=== PATIENT | male | born 1935 | race African-American/Black ===

== ENCOUNTER 2016-11-05 16:34 | Inpatient (IN) | payer BC, MEDICARE ==
[~2016-11-05] VITALS: Ht 182.9 cm; Wt 86.2 kg
[~2016-11-05 16:34] MED LIST: ALBUTEROL2.5 MG/3 M UPD; BUMETANIDE0.5 MG PO; COLACE100 MG PO; DULCOLAX10 MG/SUPP RC; FLORAJEN3 CAPS460 MG PO; HUMULIN R100 U/ML SC; IPRAT-ALBUT 0.5-3 ML INH; LANTUS SOL100 UNIT/1 SC; LISINOPRIL10 MG PO; LOVENOX30 MG/0.3 SC; LYRICA25 MG PO; MAXIPIME 2 GM/D52 G1 IV; MIRALAX17 GM PO; MUCINEX DM ER1 EAC1 PO; NEURONTIN800 MG PO; ONDANSETRON4 MG/2 M3 IV; PROTONIX40 MG PO; PULMICORT0.5 MG/21 UPD; TESSALON PERLE100 MG PO
[2016-11-05 18:13] VITALS: BP 166/92; BMI 25.8
--- NOTE | 2016-11-05 19:15 | NUR ---
RESTING QUIETLY IN BED, EYES CLOSED. O2 @ 1L PER N/C.
[2016-11-05 21:20] VITALS: BP 139/90
--- NOTE | 2016-11-05 21:20 | NUR ---
ASSESSMENT AND HS MEDS COMPLETE. STARTED SCHEDULED CEFEPIME 2GM IN 50 ML TO RUN OVER 1 HOUR PER PUMP VIA RIGHT HAND S/L. TOLD PATIENT I WILL RETURN TO TAKE AND TREAT HIS BLOOD SUGAR WHEN THE GLUCOMETER IS AVAILABLE.
--- NOTE | 2016-11-05 21:50 | NUR ---
FSBS 280. GAVE PATIENT SCHEDULED LANTUS INSULIN 50 UNITS, AND SLIDING SCALE REGULAR INSULIN 6 UNITS BY SEPARATE SC INJECTIONS IN LEFT UPPER ABDOMEN. ALSO GAVE PATIENT SCHEDULED HS SNACK.
--- NOTE | 2016-11-06 | NUR ---
RESTING IN BED, EYES CLOSED. APPEARS COMFORTABLE.
--- NOTE | 2016-11-06 02:15 | NUR ---
RESTING IN BED, EYES CLOSED. CONTINUES ON O2 @ 1L PER N/C. EMPTIED 225ML FROM BEDSIDE URINAL.
--- NOTE | 2016-11-06 04:15 | NUR ---
IN BED, EYES CLOSED. REMAINS HOB UP 45 DEGREES. APPEARS COMFORTABLE.
--- NOTE | 2016-11-06 06:30 | NUR ---
FSBS 107. DENIES NEEDS.
[2016-11-06 06:58] LABS: BASOPHILS 0.4 % (0.0-2.0); EOSINOPHILS 6.6 % (0-7); HEMATOCRIT 42.1 % (42.0-54.0); HEMOGLOBIN 13.3 g/dL (13.5-17.5); IMMATURE GRANULOCYTES 0.1 % (0-5); LYMPHOCYTES 18.8 % (15-50); MCH 27.3 pg (26.0-34.0); MCHC 31.6 g/dL (31.0-37.0); MCV 86.4 fL (80.0-100.0); MEAN PLATELET VOLUME 10.8 fL (7.4-10.4); MONOCYTES 10.6 % (2-11); NEUTROPHILS 63.5 % (40-80); PLATELET COUNT 241 10x3/uL (130-400); RBC 4.87 10x6/uL (4.20-6.10); WBC 7.8 10x3/uL (4.8-10.8)
[2016-11-06 07:35] LABS: ANION GAP 11.9 mmol/L (8-16); CALCIUM 8.9 mg/dL (8.5-10.1); CARBON DIOXIDE 26.8 mmol/L (21.0-32.0); CREATININE - SERUM 1.2 mg/dL (0.6-1.3); POTASSIUM - SERUM 3.7 mmol/L (3.5-5.1)
--- NOTE | 2016-11-06 08:15 | NUR ---
PT RESTING IN BED WITH EYES OPEN CALL LIGHT IN REACH NO PROBLEMS WILL MONITER
[2016-11-06 12:17] VITALS: BP 125/71
--- NOTE | 2016-11-06 13:14 | RHP ---
PATIENT: JAYJAY WEI MEDICAL RECORD: [id number] ACCOUNT: [id number] LOCATION:[facility] [place] Olivia1111 : 31 ADMISSION DATE: 11/05/16 REHABILITATION HISTORY AND PHYSICAL EXAMINATION POST ADMISSION PHYSICIAN EXAMINATION DATE OF ADMISSION TO THE REHAB: 11/05/2016 ADMITTING DIAGNOSIS: Multilobar pneumonia involving the left upper lobe, left lower lobe and right lower, lobe emphysema, and pleural effusion. HISTORY OF PRESENT ILLNESS: The patient is an 81-year-old gentleman who was admitted on November 01 with multilobar pneumonia. He has a history of hypertension, chronic kidney disease, and diabetes. He is admitted for increasing shortness of breath and weakness. He has been sick for 3-4 days, but becoming progressively worse. He had fallen twice. He has had dyspnea and wheezing with any type of activity. He is really not having leg edema and has not really had any problems with his breathing affected by weather changes in the past. He has had some subjective fever and chills over the last couple of days. He is an ex-smoker, quit 10 years ago. Prior to that, he smoked 2 packs a day since the age of 14. He was markedly independent with ADLs. He used a cane on occasion. Currently, he is moderate to max assist with ADLs and mobility, unable to ambulate without portable O2 and still becomes fatigued and shortness of breath. COMORBIDITIES: Include acute dyspnea, fever, COPD, chronic kidney disease, diabetes, acute weakness, debility, recent falls, numbness, arrhythmias, respiratory distress, PE, DVT, fall, skin breakdown and sepsis. PAST MEDICAL HISTORY: Significant for a history of chronic kidney disease, probable COPD, diabetes mellitus, recent falls, PE, and DVT. PAST SURGICAL HISTORY: Includes a disc repair. ALLERGIES: No known drug allergies. CURRENT MEDICATIONS: Include Protonix 40 mg daily, lisinopril 10 mg daily, Lactinex 1 tab daily. He is on Lovenox 30 mg subQ daily, Bumex 0.5 mg daily, polyethylene glycol 17 grams in 8 ounces of water daily. He is on ____ 2 grams IV q.12 hours. He is on Zofran p.r.n. nausea and vomiting, DuoNeb updrafts q. 4 hours. He is on a low resistant sliding scale with insulin. He is on Lantus 50 units q. h.s. He is on Mucinex DM twice daily, Neurontin ____ mg t.i.d., Colace 100 mg b.i.d., budesonide 0.5 mg b.i.d., Dulcolax suppositories p.r.n., Tessalon Perles 100 mg t.i.d. p.r.n. HABITS: No current alcohol or tobacco use. FAMILY HISTORY: Noncontributory. SOCIAL HISTORY: The patient is . He would like to return home with his . REVIEW OF SYSTEMS: GENERAL: He does complain of weakness and fatigue. HEENT: He does complain of cold, cough, and congestion at times. HISTORY AND PHYSICAL [id number] JAYJAY WEI CARDIOVASCULAR: He denies any chest pain. LUNGS: He does complain of shortness of breath. PHYSICAL EXAMINATION: VITAL SIGNS: Stable and afebrile. GENERAL: A well-developed gentleman in no acute distress, alert upon exam. HEENT: Normocephalic and atraumatic. Mucosa moist. NECK: Supple. No lymphadenopathy. LUNGS: Clear at this time. HEART: Regular rate and rhythm. ABDOMEN: Benign. EXTREMITIES: No clubbing, cyanosis or edema. NEUROLOGIC: Intact. LABORATORY DATA: His white count is 136, potassium 3.7. BUN and creatinine 15 and 1.2. White count of 7.8, H&H of 13 and 42, and platelet count is 241. ASSESSMENT: This is an 81-year-old gentleman admitted to the rehab with a working diagnosis of multilobar pneumonia, which has caused him to have a significant myopathic change. The patient has potential to make improvement. We instituted the following multidisciplinary therapies including to, but not limited to physical, occupational, speech, respiratory therapy. The patient has potential to make improvement and will not be able to make these improvements at a low level of care such as a residential facility. PLAN: 1. Admit to [facility] rehab for intensive inpatient therapy to include the following disciplines: A. Physical therapy to improve gait, all transfer skills and bed mobility to a modified independent level. B. Occupational therapy to improve activities of daily living to a modified independent level. C. Case management to assist with discharge planning and placement options. D. Nutrition to assist with nutritional needs. E. Rehabilitation nursing to assist in monitoring the patient's underlying medical conditions and to assist with any type of bowel or bladder management. 2. The patient's current medication and medical care will be continued. 3. The patient will be placed on standard fall precautions. 4. The patient's estimated length of stay is approximately 7-10 days. 5. Discuss this patient during care team staff meeting this week. TRANSINT:[id number] Voice Confirmation ID: [id number] DOCUMENT ID: [id number] ROBERTO CARLOS MARRUFO MD at 1314 CC: [id number] DICTATION DATE: 11/06/16926 PADDER: 11/06/16 0957 ADM IN [facility] [address] [id number]
--- NOTE | 2016-11-06 14:40 | NUR ---
PT IN ROOM WITH PEECH THERAPY NO PROBLEMS CALL LIGHT IN REACH WILL MONITER
[2016-11-06 14:49] VITALS: Ht 182.9 cm; Wt 86.2 kg
--- NOTE | 2016-11-06 17:38 | NUR ---
PT RESTING IN BED WITH EYES OPEN CALL LIGHT IN REACH WILL MONITER
[2016-11-06 20:00] VITALS: BP 133/76
--- NOTE | 2016-11-06 20:00 | NUR ---
PT IS RESTING IN BED WITH EYES CLOSED. AWAKENS EASILY TO VERBAL STIMULI. DENIES PAIN OR DISCOMFORT AT THIS TIME. NO NEEDS VOICED. VSS. 02 IS ON @ 2LPM PER NC. SR'S ARE UP X 2 IN BED. CALL LIGHT AND BEDSIDE TABLE ARE WITHIN EASY REACH.
--- NOTE | 2016-11-06 21:45 | NUR ---
PT IS RESTING IN BED WATCHING TV. PT STATED, IM STARVING. I DIDNT EAT ANYTHING FOR SUPPER TONIGHT. PT GIVEN A SANDWICH TRAY. HE STATED, THAT WOULD DO JUST FINE. NO FURTHER NEEDS VOICED.
--- NOTE | 2016-11-06 23:39 | NUR ---
RESTING QUIETLY IN BED WITH EYES CLOSED. RESPS ARE EVEN AND UNLABORED. NO ACUTE DISTRESS NOTED.
--- NOTE | 2016-11-07 00:15 | NUR ---
PT. IN BED WITH HOB UP FOR COMFORT WITH EYES CLOSED AND RESP. EVEN. PT. AWAKENS EASILY AND DENIES ANY PROBLEMS OR PAIN. CALL LIGHT WITHIN REACH.
--- NOTE | 2016-11-07 02:09 | NUR ---
RESTING IN BED WITH EYES CLOSED.
--- NOTE | 2016-11-07 06:16 | NUR ---
PT RESTING IN BED WITH EYES CLOSED. AWOKE EASILY TO VERBAL STIMULI. DENIES NEEDS. USING URINAL PRN.
[2016-11-07 07:00] VITALS: BP 118/63
--- NOTE | 2016-11-07 07:00 | NUR ---
Pt. was received in bed with eyes closed at the beginning of this shift. His IV was connected still to the antibiotic hanging and soon finished out. IV in rt. hand patent. He is oriented to person and place. 02 per nc going at 2L/min. He had had an incontinent episode of urine badly and was soon cleaned up. His breakfast tray was then put in front of him and he began eatting. He needs assist with all adl's. Vital signs: Temp. 97.6, pulse 95, resp. 16, b/p 93/44, 02sat. 98%. on 2L/min. per nc. Will be monitoring him closely this shift and assisting prn.
--- NOTE | 2016-11-07 19:30 | NUR ---
PT RESTING IN BED WATCHING TV. ALERT AND ORIENTED X 3. DENIES ACUTE DISCOMFORT. REQUESTED ASSIST WITH THE URINAL. VOIDED 550 CC CLEAR KB URINE WITHOUT DIFFICULTY. VSS. SALINE LOCK NOTED TO RIGHT HAND. NO REDNESS OR EDEMA NOTED AT THE INSERTION SITE. O2 IS ON @ 2LPM PER NC. SR'S ARE UP X 3 IN BED. CALL LIGHT AND BEDSIDE TABLE ARE WITHIN EASY REACH.
[2016-11-07 19:53] VITALS: BP 135/81
--- NOTE | 2016-11-07 21:13 | NUR ---
PT IS RESTING IN BED WATCHING TV. NO NEEDS VOICED.
--- NOTE | 2016-11-08 00:05 | NUR ---
RESTING IN BED WITH EYES CLOSED.
--- NOTE | 2016-11-08 03:26 | NUR ---
RESTING QUIETLY IN BED WITH EYES CLOSED. NO DISTRESS NOTED.
--- NOTE | 2016-11-08 06:00 | NUR ---
PT RESTING WITH EYES CLOSED, RESPIRATIONS REGULAR AND LABORED, NO S/S OF ACUTE DISTRESS.
[2016-11-08 07:00] VITALS: BP 107/54
--- NOTE | 2016-11-08 07:00 | NUR ---
Pt. was received in bed awake at the beginning of this shift today. He was alert and oriented x 3. No complaints voiced or signs of discomfort or distress. Vital signs: Temp. 98.5, pulse 72, resp. 18, b/p 107/54, 02Sat. 99%. Pt. uses his urinal in bed, he holds it between his legs. Saline lock in rt. hand. 02 per nc going at 2L/min. Will be monitoring him and assisting prn with adl's. Call light in reach.
--- NOTE | 2016-11-08 15:19 | NUR ---
Pt's Lisinopril was held this am due to his bp being 107/54. He had phoned his this afternoon and told her that he had trouble at lunch holding his food but didn't want to say anything to the nurse or ask for assist. She told him she would be up at supper time. Will be available to him at suppertime to assist prn.
--- NOTE | 2016-11-08 19:30 | NUR ---
PT IS RESTING IN BED WATCHING TV. ALERT AND ORIENTED X 3. DENIES PAIN OR DISCOMFORT. ASSISTED TO USE URINAL BY SENIOR MARKETING ENGINEER. VSS. SALINE LOCK NOTED TO RIGHT HAND. NO REDNESS OR EDEMA NOTED AT THE INSERTION SITE. SR'S ARE UP X 3 IN BED. CALL LIGHT AND BEDSIDE TABLE ARE WITHIN EASY REACH.
[2016-11-08 20:00] VITALS: BP 129/81
--- NOTE | 2016-11-08 21:10 | NUR ---
PT RESTING IN BED WATCHING TV. NO NEEDS VOICED.
--- NOTE | 2016-11-09 00:05 | NUR ---
PT NOTED TO BE INC. OF A LARGE AMOUNT OF URINE. BED BATH , AND FULL LINEN CHANGE DONE.
--- NOTE | 2016-11-09 04:12 | NUR ---
RESTING IN BED WITH EYES CLOSED.
--- NOTE | 2016-11-09 04:51 | NUR ---
pt resting with eyes closed, respirations regular and unlabored, no s/s of acute distress.
[2016-11-09 08:44] VITALS: BP 142/68
--- NOTE | 2016-11-09 13:54 | NUR ---
PT RESTING IN BED WITH EYES OPEN CALL LIGHT IN REACH NO PROBLEMS WILL MONITER
[2016-11-09 19:40] VITALS: BP 109/61
--- NOTE | 2016-11-09 20:00 | NUR ---
PT IS RESTING IN BED WITH EYES OPEN. SEVERAL FAMILY MEMBERS ARE AT BEDSIDE. PT IS ALERT TO SELF AND PLACE. CONFUSED TO TIME AND SITUATION. REORIENTS EASILY. PT STATES: "I JUST FEEL EXTRA WEAK TODAY, I DONT KNOW WHY." SALINE LOCK NOTED TO RIGHT HAND. SR'S ARE UP X 3 IN BED. CALL LIGHT AND BEDSIDE TABLE ARE WITHIN EASY REACH.
--- NOTE | 2016-11-09 22:01 | NUR ---
PT IS RESTING QUIETLY IN BED WITH EYES CLOSED. RESPS ARE EVEN AND UNLABORED. NO ACUTE DISTRESS NOTED.
--- NOTE | 2016-11-10 00:11 | NUR ---
PT RESTING IN BED WITH EYES CLOSED.
--- NOTE | 2016-11-10 02:38 | NUR ---
PT RESTING, EYES CLOSED. BED LOW. CL IN REACH.
--- NOTE | 2016-11-10 06:02 | NUR ---
PT RESTING IN BED WITH EYES CLOSED. AWOKE TO VERBAL STIMULI. TOLERATED AM ADLS WITHOUT DIFFICULTY. NO NEEDS VOICED.
--- NOTE | 2016-11-10 07:36 | NUR ---
RESTING QUIETLY IN BED. CALL LIGHT IN REACH
--- NOTE | 2016-11-10 08:15 | NUR ---
PT EATING BREAKFAST TOLERATING WELL CALL LIGHT IN REACH NO PROBLEMS WILL MONITER
[2016-11-10 08:34] VITALS: BP 110/56
--- NOTE | 2016-11-10 14:40 | NUR ---
PT WENT FOR CHEST X-RAY BACK IN ROOM SITTING IN WHEELCHAIR TOLERATING WELL CALL LIGHT IN REACH WILL MONITER
[2016-11-10 15:49] LABS: BASOPHILS 0.2 % (0.0-2.0); EOSINOPHILS 1.4 % (0-7); HEMATOCRIT 46.4 % (42.0-54.0); HEMOGLOBIN 14.8 g/dL (13.5-17.5); IMMATURE GRANULOCYTES 0.4 % (0-5); LYMPHOCYTES 18.2 % (15-50); MCH 28.2 pg (26.0-34.0); MCHC 31.9 g/dL (31.0-37.0); MCV 88.5 fL (80.0-100.0); MEAN PLATELET VOLUME 10.4 fL (7.4-10.4); MONOCYTES 9.1 % (2-11); NEUTROPHILS 70.7 % (40-80); PLATELET COUNT 277 10x3/uL (130-400); RBC 5.24 10x6/uL (4.20-6.10); RDW 15.4 % (11.5-14.5); WBC 11.2 10x3/uL (4.8-10.8)
[2016-11-10 16:26] LABS: ALBUMIN 2.9 g/dL (3.4-5.0); ALKALINE PHOSPHATASE 123 U/L (46-116); ALT (SGPT) 81 U/L (10-68); BILIRUBIN - TOTAL 0.83 mg/dL (0.2-1.3); CALCIUM 10.1 mg/dL (8.5-10.1); CARBON DIOXIDE 31.9 mmol/L (21.0-32.0); CHLORIDE - SERUM 95 mmol/L (98-107); CREATININE - SERUM 1.7 mg/dL (0.6-1.3); POTASSIUM - SERUM 4.8 mmol/L (3.5-5.1); PROTEIN - SERUM 8.8 g/dL (6.4-8.2); SODIUM 134 mmol/L (136-145); THYROID STIMULATING HORMONE 2.05 uIU/mL (0.36-3.74); UREA NITROGEN 33 mg/dL (7-18); eGFR NON AFRICAN AMERICAN 41 mL/min (90-120)
[2016-11-10 16:27] LABS: CALC OSMOLALITY 280 mosm/kg (275-300); CKMB 1.2 U/L (0.0-3.6); CREATINE KINASE 1553 UL (21-232); GLUCOSE 210 mg/dL (74-106)
--- NOTE | 2016-11-10 17:12 | NUR ---
PT RESTING IN BED WITH EYES OPEN CALL LIGHT IN REACH VISITORS AT BEDSIDE WILL MONITER
--- NOTE | 2016-11-10 19:10 | NUR ---
PATIENT IN BED, AWAKE. HOB UP 30 DEGREES. O2 @ 2L PER N/C.
[2016-11-10 21:19] VITALS: BP 109/58
--- NOTE | 2016-11-10 21:25 | NUR ---
ASSESSMENT AND HS MEDS COMPLETE. TOOK MEDS WHOLE WITH WATER. TOLD HIM STEEL TESTER WILL ASSIST HIM TO BATHE AROUND 2200 HRS.
--- NOTE | 2016-11-10 22:35 | NUR ---
PATIENT WAS GIVEN A BEDBATH BY GENERAL EXPEDITOR. NOW IS REPOSITIONED HIGHER UP IN BED AFTER BATH AND PLACEMENT OF FRESH SCRUB SHIRT REQUIRING TOTAL ASSIST (X2).
--- NOTE | 2016-11-11 00:05 | NUR ---
IN BED, EYES CLOSED. RESTING IN PARTIAL RIGHT SIDELYING POSITION. NO DISTRESS NOTED.
--- NOTE | 2016-11-11 02:00 | NUR ---
CONTINUES IN BED, RESTING QUIETLY.
--- NOTE | 2016-11-11 04:30 | NUR ---
RESTING QUIETLY IN BED, EYES CLOSED. RESPIRATIONS UNLABORED.
[2016-11-11 04:58] LABS: BASOPHILS 0.2 % (0.0-2.0); EOSINOPHILS 0.7 % (0-7); HEMATOCRIT 43.5 % (42.0-54.0); HEMOGLOBIN 13.6 g/dL (13.5-17.5); IMMATURE GRANULOCYTES 0.3 % (0-5); LYMPHOCYTES 11.4 % (15-50); MCH 27.3 pg (26.0-34.0); MCHC 31.3 g/dL (31.0-37.0); MCV 87.2 fL (80.0-100.0); MEAN PLATELET VOLUME 10.4 fL (7.4-10.4); MONOCYTES 10.2 % (2-11); NEUTROPHILS 77.2 % (40-80); PLATELET COUNT 276 10x3/uL (130-400); RBC 4.99 10x6/uL (4.20-6.10); RDW 15.1 % (11.5-14.5); WBC 9.9 10x3/uL (4.8-10.8)
[2016-11-11 05:10] LABS: ANION GAP 11.5 mmol/L (8-16); CALCIUM 8.8 mg/dL (8.5-10.1); CARBON DIOXIDE 28.6 mmol/L (21.0-32.0); CREATININE - SERUM 1.6 mg/dL (0.6-1.3); POTASSIUM - SERUM 5.1 mmol/L (3.5-5.1)
--- NOTE | 2016-11-11 07:51 | NUR ---
SITTING UP IN BED WITH HOB ELEVATED ABOUT 70 DEGREES.
--- NOTE | 2016-11-11 08:15 | NUR ---
PT RESTING IN BED PT EYES CLOSED UNLABORED RESPIRATIONS PT SLOW TO RESPOND STATES HE JUST DOESNT FEEL GOOD AND THAT HE IS NOT HUNGRY CALL LIGHT IN REACH WILL MONITER
--- NOTE | 2016-11-11 09:30 | NUR ---
DR MARRUFO SEEN PT WILL PLAN ON DC TO ACUTE CARE
[2016-11-11 09:51] VITALS: BP 130/67
--- NOTE | 2016-11-11 13:30 | NUR ---
ORDERS WROTE FOR DISCHARGE PT TO ACUTE CARE WILL DC ORDERED
--- NOTE | 2016-11-11 14:46 | NUR ---
DUE TO CHANGE IN MEDICAL CONDITION PATIENT DISCHARGED FROM REHAB AND ADMITTED TO ACUTE FLOOR
--- NOTE | 2016-11-11 17:05 | NUR ---
PT DISCHARGED TO ACUTE CARE PER DR ORDERS REPORT CALLED TO [facility] KAPLAN MED 2 PT TRANSFERED IN BED TOLERATED WELL
== END 2016-11-11 17:07 | disposition short-term general hospital (02) | DRG 190 ==
LOC: D.REHAB 16:34
PROVIDERS: ADMIT Emergency Medicine
DX: J44.0 Chronic obstructive pulmonary disease with (acute) lower respiratory infection (principal); J18.9 Pneumonia, unspecified organism; A41.9 Sepsis, unspecified organism; I12.9 Hypertensive chronic kidney disease with stage 1 through stage 4 chronic kidney disease, or unspecified chronic kidney disease; N18.9 Chronic kidney disease, unspecified; E11.65 Type 2 diabetes mellitus with hyperglycemia; E87.5 Hyperkalemia; R94.5 Abnormal results of liver function studies; R53.81 Other malaise

== ENCOUNTER 2016-11-11 17:09 | Inpatient (IN) | payer BC, MEDICARE ==
[~2016-11-11] VITALS: Ht 182.9 cm; Wt 85.7 kg
[2016-11-11 17:13] VITALS: BP 134/65
[2016-11-11 17:39] VITALS: BP 134/65; BMI 25.7
--- NOTE | 2016-11-11 17:51 | NUR ---
ADMITTED FROM INPATIENT REHAB. CONFUSED AT SITUATION. DOES KNOW HE HASBEEN MOVED TO INPATIENT DUE TO PNEUMONIA. HISTORY TAKEN FROM REHAB. IV STARTED ON 2ND ATTEMPT IN L AC WITH 20 G 1 IN. SALINE LOCKED. WHEEZING ON EXPIRATION. COOL AND DRY. WILL CONTINUE TO MONITOR.
--- NOTE | 2016-11-11 19:48 | NUR ---
PT LYING IN BED, AWAKE, ALERT, ORIENTED, DENIES ANY NEEDS. CONTINUE TO MONITOR CLOSELY. BED LOW, CALL LIGHT IN REACH, SIDE RAILS X 2, HOB 10 DEGREES.
[2016-11-11 20:26] VITALS: BP 151/85
[2016-11-12 00:38] VITALS: BP 146/64
--- NOTE | 2016-11-12 04:30 | NUR ---
PT CALLED C/O MID STERNAL CHEST PAIN, ALSO RUNNING LOW GRADE TEMP @ 99.9 ORALLY. PRN TYLENOL GIVEN, AND PT PLACED ON TELEMETRY. PT DENIES ANY OTHER NEEDS. CONTINUE TO MONITOR CLOSELY.
[2016-11-12 04:40] VITALS: BP 100/57
[2016-11-12 05:47] LABS: BASOPHILS 0.2 % (0.0-2.0); HEMATOCRIT 40.4 % (42.0-54.0); HEMOGLOBIN 12.6 g/dL (13.5-17.5); IMMATURE GRANULOCYTES 0.1 % (0-5); LYMPHOCYTES 14.4 % (15-50); MCH 27.5 pg (26.0-34.0); MCHC 31.2 g/dL (31.0-37.0); MCV 88.2 fL (80.0-100.0); MEAN PLATELET VOLUME 10.4 fL (7.4-10.4); MONOCYTES 9.9 % (2-11); NEUTROPHILS 73.4 % (40-80); PLATELET COUNT 311 10x3/uL (130-400); RBC 4.58 10x6/uL (4.20-6.10); RDW 15.1 % (11.5-14.5); WBC 8.6 10x3/uL (4.8-10.8)
[2016-11-12 06:43] LABS: CALC OSMOLALITY 284 mosm/kg (275-300); CALCIUM 9.1 mg/dL (8.5-10.1); CARBON DIOXIDE 29.9 mmol/L (21.0-32.0); CHLORIDE - SERUM 98 mmol/L (98-107); CREATINE KINASE 780 UL (21-232); CREATININE - SERUM 1.6 mg/dL (0.6-1.3); GLUCOSE 272 mg/dL (74-106); MAGNESIUM - SERUM 2.4 mg/dL (1.8-2.4); PHOSPHOROUS 2.7 mg/dL (2.5-4.9); POTASSIUM - SERUM 4.7 mmol/L (3.5-5.1); SODIUM 133 mmol/L (136-145); UREA NITROGEN 38 mg/dL (7-18); eGFR NON AFRICAN AMERICAN 44 mL/min (90-120)
[2016-11-12 07:07] LABS: CKMB 0.7 U/L (0.0-3.6)
[2016-11-12 08:00] VITALS: BP 93/42
--- NOTE | 2016-11-12 08:01 | NUR ---
AM ROUNDING- PT LAYING IN BED C/O WETTING THE BED. LINEN CHANGED AND PT CLEANED UP. FRIEND AT BEDSIDE. ON MONITOR SHOWING SR, HR 96. FSBS ACHS, 272 THIS AM THAT WAS COVERED BY IRONER MACHINE NURSEESTHER. IV SEEN TO LEFT AC WITH 1/2 NS RUNNING AT 75CC. ON 2L VIA NC. URINAL AT BEDSIDE. UP WITH ASSIST PER REPORT FROM IRONER MACHINE NURSEESTHER. INSTRUCTED PT TO USE CALL LIGHT FOR HELP GOING TO BATHROOM. WILL CONTINUE TO MONITOR.
[2016-11-12 12:00] VITALS: BP 123/66
[2016-11-12 12:11] VITALS: Ht 182.9 cm; Wt 85.7 kg
[2016-11-12 12:34] LABS: CKMB 0.6 U/L (0.0-3.6); CREATINE KINASE 731 UL (21-232)
[2016-11-12 12:39] LABS: TROPONIN-I < 0.017 ng/mL (0.000-0.060)
[2016-11-12 16:00] VITALS: BP 140/67
--- NOTE | 2016-11-12 16:23 | EC ---
PATIENT:JAYJAY WEI DATE OF SERVICE: 11/11/16 SEX: M MEDICAL RECORD: [id number] DATE OF : 33 LOCATION:D.M2 D.210 AGE OF PATIENT: 81 ADMISSION DATE: 11/11/16 REFERRING PHYSICIAN: INTERPRETING PHYSICIAN: CRISTA BEE MD ECHOCARDIOGRAM REPORT ECHO CHARGES 4 ECHO COMPLETE CLINICAL DIAGNOSIS: DYSPNEA ECHOCARDIOGRAPHIC MEASUREMENTS (adult normal given) AC root (d.<3.7cm) 3.5 LV Septum d (<1.2 cm> 1.4 Valve Excursion 1.6 LV Septum (systole) 1.5 Left Atria (s.<4.0cm> 3.5 LVPW d(<1.2cm) 1.3 RV (d.<2.3cm) 3.5 LVPW (sytole) 1.6 LV diastole(<5.6CM) 3.7 MV E-F(>70mm/sec) LV systole 2.8 LVOT Diameter 1.6 MV exc.(>10mm) 1.6 Est.ejection fraction (50-75%) Pericardial Effusion N DOPPLER: LVIT A 95.0 E 63.0 LA RVSP 22 LVOT 85 AOP1/2T Asc. Ao 156 RVOT 110 RA PA 116 AV Gradient Peak 9.73 AV Mean 5.86 AV Area 1.1 MV Gradient Peak 3.05 MV Mean 1.26 MV Area COMMENTS: Maintenance Repairer: Lele MURRAY Trading Manager:Lele Forde TAPE# PACS DATE OF SERVICE: 11/12/2016 Echocardiogram FINDINGS: 1. Left ventricular chamber size is within normal limits. Left ventricular systolic function is normal. Overall ejection fraction estimated at 55%. 2. Left atrium, right atrium and right ventricular chamber sizes are within normal limits. 3. Valvular structures have normal structure and motion. ECHOCARDIOGRAM REPORT [id number] JAYJAY WEI 4. Doppler interrogation reveals only mild tricuspid regurgitation, no other valvular insufficiency or stenosis. 5. No evidence of pericardial effusion or left ventricular thrombus. TRANSINT:[id number] Voice Confirmation ID: [id number] DOCUMENT ID: [id number] CRISTA BEE MD at 1623 CC: [id number] DICTATION DATE: 11/12/16 1508 MACHINE SORTER: 11/12/16 1523 ADM IN [facility] [address] [id number]
--- NOTE | 2016-11-12 18:18 | NUR ---
PT SITTING UP IN BED RESTING WITH EYES OPEN. FAMILY MEMBERS AT BEDSIDE. DENIES ANY NEED AT CURRENT TIME. WILL CONTINUE TO MONITOR.
[2016-11-12 19:17] LABS: CKMB 0.4 U/L (0.0-3.6)
[2016-11-12 19:18] LABS: CREATINE KINASE 548 UL (21-232); TROPONIN-I < 0.017 ng/mL (0.000-0.060)
[2016-11-12 20:34] VITALS: BP 127/60
[2016-11-13] VITALS: BP 145/67
[2016-11-13 00:05] LABS: CKMB 0.2 U/L (0.0-3.6); CREATINE KINASE 481 UL (21-232); TROPONIN-I < 0.017 ng/mL (0.000-0.060)
[2016-11-13 04:00] VITALS: BP 134/60
[2016-11-13 05:19] LABS: BASOPHILS 0.2 % (0.0-2.0); EOSINOPHILS 2.4 % (0-7); HEMATOCRIT 40.2 % (42.0-54.0); HEMOGLOBIN 13.1 g/dL (13.5-17.5); IMMATURE GRANULOCYTES 0.2 % (0-5); LYMPHOCYTES 19.1 % (15-50); MCH 28.8 pg (26.0-34.0); MCHC 32.6 g/dL (31.0-37.0); MCV 88.4 fL (80.0-100.0); MEAN PLATELET VOLUME 10.1 fL (7.4-10.4); MONOCYTES 8.5 % (2-11); NEUTROPHILS 69.6 % (40-80); PLATELET COUNT 284 10x3/uL (130-400); RBC 4.55 10x6/uL (4.20-6.10); RDW 15.1 % (11.5-14.5); WBC 8.9 10x3/uL (4.8-10.8)
[2016-11-13 05:28] LABS: APTT 36.8 SECONDS (22.8-39.4); INR 1.2 (0.85-1.17); PROTIME 15.1 SECONDS (11.6-15.0)
--- NOTE | 2016-11-13 05:29 | NUR ---
CALL LIGHT IN REACH. WILL CONTINUE WITH PLAN OF CARE.
[2016-11-13 05:30] LABS: ANION GAP 8.7 mmol/L (8-16); CALCIUM 9.5 mg/dL (8.5-10.1); CREATININE - SERUM 1.4 mg/dL (0.6-1.3); POTASSIUM - SERUM 4.7 mmol/L (3.5-5.1)
--- NOTE | 2016-11-13 07:30 | NUR ---
AM ROUNDING- PT SITTING UP IN BED WITH EYES CLOSED RESTING. PT IS NPO FOR PROCEDURE. CONSENTS ARE SIGNED AND DATED AND PLACED IN CHART. IV SEEN TO LEFT AC WITH 1/2 NS RUNNING AT 75CC/HR. ON 2L 0F 02 VIA NC. ON MONITOR SHOWING SR, HR 94. PT IS INCONTINENT AT TIMES BUT CAN USE URINAL PER REPORT FROM CHERRY PITTER NURSEMARIAELENA. NO NEED AT THIS TIME. WILL CONTINUE TO MONITOR.
[2016-11-13 09:01] VITALS: BP 152/68
--- NOTE | 2016-11-13 10:58 | NUR ---
PT TO RADIOLOGY FOR PROCEDURE VIA BED.
--- NOTE | 2016-11-13 12:05 | NUR ---
1152- LAURIE FROM IR CALLED TO GIVE REPORT ON PT. STATED PT DID FINE DURING PROCEDURE. LAURIE STATED PT COULD GO BACK TO NORMAL ROUTINE AND DIET ORDERS. AWAITING PT ARRIVAL.
--- NOTE | 2016-11-13 12:06 | NUR ---
1156- PT BACK FROM IR VIA BED. 4X4 WITH OPSITE SEEN TO LEFT UPPER CHEST AREA. DRESSING IS CLEAN, DRY, AND INTACT. WILL CONTINUE TO MONITOR.
[2016-11-13 13:09] VITALS: BP 111/57
--- NOTE | 2016-11-13 14:05 | NUR ---
CM attempted to visit with patient. Patient recently returned from procedure and remains drowsy and unable to converse with CM at this time. CM will revisit at a later time. CM to follow and assist with discharge planning/needs. Misti Weber RN/CM
[2016-11-13 16:43] VITALS: BP 123/72
--- NOTE | 2016-11-13 17:35 | NUR ---
PT LAYING IN BED ON BACK RESTING, VAHE FRIEND, IN ROOM HELPING PT EAT. NO NEED AT THIS TIME. WILL CONTINUE TO MONITOR.
--- NOTE | 2016-11-13 18:38 | NUR ---
PT LAYING IN BED ON BACK WITH EYES CLOSE RESTING, NO NEED AT CURRENT TIME. WILL CONTINUE TO MONITOR.
--- NOTE | 2016-11-13 19:15 | NUR ---
ALERT/AWAKE DENIES PAIN OR ANY NEEDS. IV IN L AC INTACT/PATENT. 02 AT 2L/NC RR 18 EVEN U/L. DRSG ON LT CHEST C/D/I FROM LUNG BX. ORIENTED TO CALL LIGHT FOR ANY NEEDS OR DISCOMFORTS.
[2016-11-13 21:00] VITALS: BP 147/72
--- NOTE | 2016-11-13 22:00 | NUR ---
ADMIN SCHED PO MEDS WITH SIPS OF WATER. CHECKED BS AT 142, ADMIN 25 UNITS OF 50 UNITS LANTUS ORDERED DUE TO LOW BS AND EATING VERY LITTLE. DENIES ANY OTHER NEEDS.
[2016-11-14 00:42] VITALS: BP 133/70
--- NOTE | 2016-11-14 04:06 | NUR ---
AWAKE. REQUESTED HIS LEGS REPOSITIONED. NO OTHER NEEDS OR DISCOMFORTS VOICED.
--- NOTE | 2016-11-14 04:12 | NUR ---
LAB CALLED AND DID NOT DRAW VANC TROUGH AT 0230. RESCHED FOR 11/15/16 AT 0230.
[2016-11-14 07:14] LABS: BASOPHILS 0.2 % (0.0-2.0); EOSINOPHILS 1.9 % (0-7); HEMATOCRIT 40.7 % (42.0-54.0); HEMOGLOBIN 12.6 g/dL (13.5-17.5); IMMATURE GRANULOCYTES 0.2 % (0-5); MCH 27.5 pg (26.0-34.0); MCV 88.7 fL (80.0-100.0); MEAN PLATELET VOLUME 10.2 fL (7.4-10.4); MONOCYTES 7.9 % (2-11); NEUTROPHILS 73.8 % (40-80); PLATELET COUNT 321 10x3/uL (130-400); RBC 4.59 10x6/uL (4.20-6.10); WBC 9.7 10x3/uL (4.8-10.8)
[2016-11-14 07:18] VITALS: BP 142/74
--- NOTE | 2016-11-14 07:20 | NUR ---
RECEIVED REPORT. ASSUMED CARE OF PATIENT. CALL LIGHT WITH IN REACH. RESTING WITH EYES CLOSED. RESP EVEN AND UNLABORED. NO DISTRESS.
[2016-11-14 07:26] VITALS: BP 142/74
[2016-11-14 07:50] LABS: ALBUMIN 2.2 g/dL (3.4-5.0); BILIRUBIN - DIRECT 0.23 mg/dL (0.00-0.30); BILIRUBIN - INDIRECT 0.47 mg/dL (0.00-1.00); BILIRUBIN - TOTAL 0.7 mg/dL (0.2-1.3); CALCIUM 8.9 mg/dL (8.5-10.1); CARBON DIOXIDE 31.6 mmol/L (21.0-32.0); CREATININE - SERUM 1.3 mg/dL (0.6-1.3); POTASSIUM - SERUM 4.6 mmol/L (3.5-5.1); PROTEIN - SERUM 7.6 g/dL (6.4-8.2)
--- NOTE | 2016-11-14 10:52 | NUR ---
PT STATES ATTEMPTED TO WORK WITH PATIENT. PATIENT UNABLE TO SIT UP WITHOUT ASSIST AND PATIENT REQUESTED TO BE LAID BACK DOWN. PT STATES PATIENT IS WEAKER TODAY THAN YESTERDAY. NO DISTRESS.
[2016-11-14 11:30] VITALS: BP 141/74
--- NOTE | 2016-11-14 11:33 | NUR ---
FSBS 190. 2 UNITS HUMALOG ADMINISTERED PER SLIDING SCALE AT THIS TIME.
--- NOTE | 2016-11-14 13:25 | NUR ---
FSBS 179. 2 UNITS HUMALOG ADMINISTERED PER SLIDING SCALE AT THIS TIME. NO DISTRESS.
[2016-11-14 15:21] VITALS: BP 146/69
--- NOTE | 2016-11-14 20:26 | NUR ---
RESTING IN BED WATCHING TV. ALERT ORIENTED WATCHING TV. SOFT SPOKEN. DENIES NEEDS. NO ACUTE DISTRESS NOTED
[2016-11-14 20:30] VITALS: BP 128/63
--- NOTE | 2016-11-14 23:58 | NUR ---
PT LAYING IN BED NO DISTRESS OBSERVED CALL LIGHT IN REACH SRX2 BED LOW AND LOCKED WILL MONITOR
[2016-11-15 00:10] VITALS: BP 119/57
[2016-11-15 04:20] VITALS: BP 147/75
--- NOTE | 2016-11-15 07:00 | NUR ---
RECEIVED REPORT. ASSUMED CARE OF PATIENT. CALL LIGHT WITHIN REACH. IV FLUIDS INFUSING ORDERED. RESTING WITH EYES CLOSED, EASILY AROUSED. NO DISTRESS.
[2016-11-15 07:35] VITALS: BP 133/66
[2016-11-15 07:59] LABS: BASOPHILS 0.4 % (0.0-2.0); EOSINOPHILS 3.4 % (0-7); HEMATOCRIT 41.6 % (42.0-54.0); IMMATURE GRANULOCYTES 0.9 % (0-5); MCH 27.4 pg (26.0-34.0); MCHC 31.3 g/dL (31.0-37.0); MCV 87.6 fL (80.0-100.0); MEAN PLATELET VOLUME 10.8 fL (7.4-10.4); MONOCYTES 5.9 % (2-11); NEUTROPHILS 71.4 % (40-80); PLATELET COUNT 298 10x3/uL (130-400); RBC 4.75 10x6/uL (4.20-6.10); RDW 14.8 % (11.5-14.5)
[2016-11-15 08:00] VITALS: BP 150/62
[2016-11-15 08:11] LABS: ANION GAP 12.8 mmol/L (8-16); CALCIUM 9.2 mg/dL (8.5-10.1); CARBON DIOXIDE 29.3 mmol/L (21.0-32.0); CREATININE - SERUM 1.1 mg/dL (0.6-1.3); POTASSIUM - SERUM 5.1 mmol/L (3.5-5.1)
[2016-11-15 11:20] VITALS: BP 137/68
--- NOTE | 2016-11-15 11:30 | NUR ---
FSBS 87. NO INSULIN COVERAGE REQUIRED. NO DISTRESS.
[2016-11-15 15:28] VITALS: BP 139/69
--- NOTE | 2016-11-15 16:12 | NUR ---
[id number]. NO INSULIN COVERAGE REQUIRED.
--- NOTE | 2016-11-15 22:11 | NUR ---
INITIAL ROUNDS COMPLETED AT 1915 HRS. PT HAD C/O L HIP PAIN. NO SWELLING OR INCREASED WARMTH NOTED. ABLE TO MOVE FOOT. TYLENOL 500MG PO GIVEN AT 1936 HRS. ASSESSMENT COMPLETED AT [address] PER CM HR 124. O2 3LNC. IV TO LAC WITH 1/2NS AT 75CC/HR. IV PATENT. LUNGS DIMINISHED IN BASES BILAT. PT INCONTINENT OF SMALL AMOUNT OF STOOL. INCONTINENT CARE DONE AND BED LINENS CHANGED. PM MEDS GIVEN PER ORDERS. FSBS 229. 4 UNITS HUMALOG GIVEN SUB-Q TO UPPER L ARM. PT CURRENTLY RESTING WITH EYES CLOSED. RESP EVEN AND REGULAR. SR UP X2, CALL LIGHT WITHIN REACH.
[2016-11-16] VITALS: BP 90/48
--- NOTE | 2016-11-16 00:49 | NUR ---
REPOSITONED IN BED FOR COMFORT. WILL CONTINUE TO MONITOR. BOX ALARM IN USE.
[2016-11-16 02:39] LABS: BASOPHILS 0.2 % (0.0-2.0); EOSINOPHILS 3.2 % (0-7); HEMATOCRIT 39.1 % (42.0-54.0); HEMOGLOBIN 12.2 g/dL (13.5-17.5); IMMATURE GRANULOCYTES 0.5 % (0-5); LYMPHOCYTES 16.8 % (15-50); MCH 27.3 pg (26.0-34.0); MCHC 31.2 g/dL (31.0-37.0); MCV 87.5 fL (80.0-100.0); MEAN PLATELET VOLUME 10.1 fL (7.4-10.4); NEUTROPHILS 70.3 % (40-80); PLATELET COUNT 344 10x3/uL (130-400); RBC 4.47 10x6/uL (4.20-6.10); RDW 14.6 % (11.5-14.5); WBC 8.5 10x3/uL (4.8-10.8)
[2016-11-16 02:53] LABS: ANION GAP 28.3 mmol/L (8-16); CALCIUM 9.4 mg/dL (8.5-10.1); CARBON DIOXIDE 12.2 mmol/L (21.0-32.0); CREATININE - SERUM 1.4 mg/dL (0.6-1.3); POTASSIUM - SERUM 4.5 mmol/L (3.5-5.1)
--- NOTE | 2016-11-16 03:11 | NUR ---
PT INCONTINENT OF URINE. BEDBATH DONE, BED LINENS CHANGED. PT TOLERATED ACTIVITY WELL. WILL CONITNUE TO MONITOR. SR UP X3, CALL LIGHT WITHIN REACH AND BED ALRM ON. BILAT HEELS ELEVATED.
--- NOTE | 2016-11-16 05:32 | NUR ---
PT RESTING WITH EYES CLOSED. RESP EVEN AND REGULAR. SR UP X2, CALL LIGHT WITHIN REACH.
--- NOTE | 2016-11-16 06:35 | NUR ---
PT STATED TYLENOL HELPED ALLEVIATE L HIP PAIN. DENIES ANY DISCOMFORT THE REST O THE SHIFT. NEEDS MET; WILL CONTINUE TO MONITOR.
--- NOTE | 2016-11-16 07:13 | NUR ---
AM ROUNDING- PT LAYING IN BED ON BACK WITH EYES CLOSED SLEEPING. CLEAN, DRY, AND INTACT DRESSING SEEN TO LEFT UPPER CHEST AREA. IV SEEN TO LEFT AC WITH NS RUNNING AT 30CC. ON 2L OF VIA NC. ON MONITOR SHOWING SR, HR 93. PT IS ON LOVENOX FOR DVT PER REPORT FROM SOLAR SALES AMBASSADOR NURSE, ARYAN. PT HAS URINAL AT BEDSIDE. FEET ARE ELEVATED ON PILLOW. NO NEED AT CURRENT TIME. WILL CONTINUE TO MONITOR.
[2016-11-16 08:45] VITALS: BP 137/64
--- NOTE | 2016-11-16 10:13 | NUR ---
Nutrition follow-up: Diet: ADA consistent CHO PO intake ~60% average of meals Labs reviewed; FSBS running high +BM Wt: 189# PO intake is fair at this time. Will continue to provide food choices with selective menus and honor food preferences within diet restrictions. RDN following.
--- NOTE | 2016-11-16 11:38 | NUR ---
Patient Name: JAYJAY WEI Admission Status: Elective Accout number: [id number] Admission Date: 11-11-2016 : 1935 Admission Diagnosis: Attending: AI Current LOS: 5 Anticipated DC Date: 11-18-2016 Planned Disposition: UNDECIDED IF WILL REQUIRE CONTINUED REHAB OR HOME HEALTH Primary Insurance: BLUE CROSS TRUE BLUE PPO Is the patient Alert and Oriented? Yes * How many steps to enter\\exit or inside your home? ONE STEP INTO HOME * PCP DR CROW, BUT PATIENT STATED HE HAS NOT SEEN PCP IN 6-7 MONTHS * Pharmacy [facility] [address] * Preadmission Environment Acute Inpatient Rehab--WAS IN REHAB FOR 7 DAYS PRIOR TO RE-ADMISSION * Facility Name [facility] * ADLs Partial Dependent * Partial ADLs (Assistance needed) Ambulation * Equipment Cane--PT STATED PRIOR TO ADMIT HE PRIMARILY USED HIS CANE Rolling Walker Shower Chair * Other Equipment PATIENT STATED HE HAS NOT GOTTEN EQUIPMENT FROM [employer] * List name and contact numbers for known caregivers / representatives who currently or will assist patient after discharge: NICK WEI, SPOUSE, * Community resources currently utilized None * Additional services required to return to the preadmission environment? Yes * Can the patient safely return to the preadmission environment? Yes * Has this patient been hospitalized within the prior 30 days at any hospital? Yes Discharge Planning Comments: CM MET WITH PATIENT TO ASSESS DC PLAN/NEEDS. PT STATED THAT PRIOR TO HIS ORIGIONAL ADMISSION HE WAS LIVING AT HOME WITH HIS SPOUSE AND WAS MOSTLY INDEPENDENT IN HIS CARE/ADL'S. STATED THAT HE WAS DRIVING AND MOSTLY ONLY USING HIS CANE WHEN AMBULATING. HE STATED THAT HE HAS NEVER HAD HH SERVICES IN THE PAST AND IS UNSURE AT THIS TIME IF HE WILL REQUIRE HH SERVICES. PT STATED THAT HE WAS IN REHAB AND THAT HE WAS NOT SURE IF HE WANTS TO RETURN TO REHAB AT DISCHARGE. HE STATED THAT "THIS MORNING WAS THE FIRST TIME THERAPY HAS COME TO WORK WITH ME AND I ONLY GOT FROM THE BED INTO THE CHAIR". HE STATED HE WAS 'WEAK" WHEN THERAPY GOT HIM UP THIS MORNING. HE STATED HE "WOULD LIKE TO WORK WITH THERAPY MORE TO SEE IF I WILL NEED REHAB AGAIN". HE STATED HE WOULD DISCUSS WITH HIS AND NOTIFY CM WHEN HE HAS MADE DECISION ABOUT REHAB. HE STATED HE MIGHT BE ABLE TO DC HOME WITH HOME HEALTH, BUT AGAIN, IS UNSURE AT THIS TIME. PATIENT STATED HIS HOME IS A SAFE PLACE AND THAT HIS CAN HELP HIM OUT "SOME" AT HOME. HE STATED HIS NICK WILL BE ABLE TO DRIVE HIM HOME AT DISCHARGE IF HE GOES HOME. CM WILL FOLLOW AND ASSIST WITH DC PLAN/NEEDS. DC IMM WAS PRESENTED TO AND EXPLAINED TO PATIENT. SIGNED IMM PLACED IN CHART. Flat Sorter Processor: Sade Melendez RN
[2016-11-16 13:14] VITALS: BP 109/52
--- NOTE | 2016-11-16 16:35 | NUR ---
WOUND CARE CONSULT: NOTED TO RIGHT HEEL UNSTAGEABLE PRESSURE INJURY COVERD WITH ESCHAR. DTI TO LEFT HEEL. BEST INTERVENTION AT THIS POINT IS BRIDGING HEELS/DECREASE PRESSURE. DISCUSSED WITH PRIMARY RN ZACH. PT IS UP TO CHAIR WITH PHYSICAL THERAPY. WOUND CARE WILL CONTINUE TO MONITOR.
--- NOTE | 2016-11-16 16:52 | NUR ---
UPON ASSESSING FEET WHILE DOING A LINEN CHANGE. ESCHAR SEEN TO RIGHT HEEL. DTI SEEN TO LEFT HEEL. DENA WOUND CARE NURSE WAS AT BEDSIDE WITH ME WHILE ASSESSING. WILL CONTINUE TO MONITOR.
[2016-11-16 17:04] VITALS: BP 133/70
--- NOTE | 2016-11-16 18:06 | NUR ---
PT RESTING IN BED ON BACK WATCHING TV. DENIES ANY NEED AT CURRENT TIME. WILL CONTINUE TO MONITOR.
--- NOTE | 2016-11-16 19:30 | NUR ---
ASSESSMENT COMPLETE, DENIES NEEDS AT THIS TIME. RESP EVEN AND UNLAB WITH O2 @ 2L VIA NC IN USE, TELEMETRY IN PLACE SHOWING HR SR. LEFT AC IV WITH NO R/S NOTED AT SITE WITH 1/2 NS INFUSING W/O DIFF VIA PUMP AT 30CC/HR. CITLALY WELL. TURN Q 2 HOURS FOR C & C. RT HEEL ESCHAR NOTED, LEFT HEEL WITH DTI NOTED, BILAT FEET UP ON PILLOW FOR C & C. USES URINAL W/O DIFF. ON LOVENOX INJECTIONS, DOES NOT WEAR SCDS. HOB UP SR UP X2, C/L IN REACH. CONTINUE TO MONITOR.
[2016-11-16 21:47] VITALS: BP 131/68
[2016-11-17 02:11] VITALS: BP 157/79
--- NOTE | 2016-11-17 04:17 | NUR ---
EYES CLOSED, RESP UNLAB WITH NO S/S OF ACUTE DIDSTRESS NOTED. C/L IN REACH.
[2016-11-17 05:29] VITALS: BP 158/70
[2016-11-17 06:25] LABS: BASOPHILS 0.5 % (0.0-2.0); EOSINOPHILS 4.9 % (0-7); IMMATURE GRANULOCYTES 0.1 % (0-5); LYMPHOCYTES 14.1 % (15-50); MCH 27.3 pg (26.0-34.0); MCV 88.1 fL (80.0-100.0); MEAN PLATELET VOLUME 9.6 fL (7.4-10.4); NEUTROPHILS 72.4 % (40-80); PLATELET COUNT 335 10x3/uL (130-400); RBC 4.77 10x6/uL (4.20-6.10); RDW 14.6 % (11.5-14.5); WBC 7.3 10x3/uL (4.8-10.8)
[2016-11-17 06:38] LABS: ANION GAP 8.4 mmol/L (8-16); CALCIUM 9.3 mg/dL (8.5-10.1); CARBON DIOXIDE 32.8 mmol/L (21.0-32.0); CREATININE - SERUM 1.3 mg/dL (0.6-1.3); POTASSIUM - SERUM 4.2 mmol/L (3.5-5.1)
--- NOTE | 2016-11-17 07:34 | NUR ---
AM ROUNDING- PT LAYING IN BED ON BACK WITH EYES CLOSED SLEEPING. ON MONITOR SHOWING ST, HR 106. ON 02 AT 2L VIA NC. IV SEEN TO LEFT AC WITH 1/2 NS RUNNING AT 30CC. ON LOVENOX FOR DVT PREVENTION. ESCHAR SEEN TO RIGHT HEEL. DTI SEEN TO LEFT HEEL. URINAL AT BEDSIDE. NO NEED AT CURRENT TIME. WILL CONTINUE TO MONITOR.
[2016-11-17 08:45] VITALS: BP 129/61
[2016-11-17 11:59] VITALS: BP 121/79
[2016-11-17 16:13] VITALS: BP 130/56
--- NOTE | 2016-11-17 16:59 | NUR ---
1645- PT TO MRI VIA WHEELCHAIR.
--- NOTE | 2016-11-17 18:13 | NUR ---
1800- PT BACK FROM MRI. NIGHT MANAGER STATED THAT PTS IV WAS LEAKING. WILL CONTINUE TO MONITOR AND CHECK IV.
--- NOTE | 2016-11-17 18:27 | NUR ---
FLUSHED PTS IV TO LEFT AC. IV IS LEAKING. TOOK IV OUT WITH CATH TIP INTACT. TOLERATED WELL. PT IS IS CURRENTLY EATING DINNER WITH FAMILY AT BEDSIDE. ATTEMPT TO RESITE BUT PT IS EATING SUPPER AND DOES NOT WANT ME TO DO IT WHILE HE IS EATING. WILL CONTINUE TO MONITOR.
[2016-11-17 20:03] VITALS: BP 116/58
--- NOTE | 2016-11-17 20:08 | NUR ---
22G PIV STARTED IN RIGHT HAND.
--- NOTE | 2016-11-17 23:04 | NUR ---
GLUCOSE CHECKED READING 164 ADMIN 2 UNITS HUMALOG PER SLIDING SCALE TO RIGHT ARM LANTUS HELD AT THIS TIME DUE TO LOW GLUCOSE LEVELS AND WILL MONITOR. PT LAYING IN BED EYES OPEN TV ON AND NO DISTRESS OBSERVED CALL LIGHT IN REACH SRX2 BED LOW AND LOCKED WILL MNITOR
[2016-11-18 00:14] VITALS: BP 128/66
[2016-11-18 05:07] VITALS: BP 123/62
--- NOTE | 2016-11-18 05:37 | NUR ---
PATIENT HAD INTERMITTENT SLEEP LAST NIGHT. NO COMPLAINTS OF PAIN OR NAUSEA. 22G PIV STARTED AT THE BEGINING OF SHIFT TO THE RIGHT HAND AND IS INFUSING 1/2 NS@30 WITH IV ABX. HE IS INCONT OF BLADDER, HE DID USE THE URINAL ONCE DURING THE NIGHT. NO NEEDS NOTED BY THE PATIENT.
--- NOTE | 2016-11-18 06:47 | NUR ---
RECEIVED REPORT FROM STORAGE MANAGEMENT CONSULTANT NURSE, KALPESH KAPLAN. PT IN BED, SLEEPING AT THIS TIME. CALL LIGHT IN REACH, NAD NOTED, WILL CONTINUE TO MONITOR.
[2016-11-18 08:25] VITALS: BP 127/66
--- NOTE | 2016-11-18 08:43 | NUR ---
ADMINISTERED MORNING MEDICATIONS, CORNELIUS KAPLAN AT BEDSIDE, PT DENIES ANY NEEDS AT THIS TIME. CALL LIGHT IN REACH, NAD NOTED, WILL CONTINUE TO MONITOR.
--- NOTE | 2016-11-18 12:02 | NUR ---
4 UNITS OF HUMALOG GIVEN FOR BLOOD SUGAR OF 218, PER SLIDING SCALE.
--- NOTE | 2016-11-18 12:35 | NUR ---
PT TRANSFERED TO RADIOLOGY VIA BED, NAD NOTED.
[2016-11-18 12:49] VITALS: BP 107/58
--- NOTE | 2016-11-18 12:55 | NUR ---
RECEIVED PT BACK TO ROOM 2101 VIA BED, NAD NOTED, IV FLUIDS RESTARTED. CALL LIGHT IN REACH, FAMILY AT BEDSIDE, WILL CONITNUE TO MONITOR.
--- NOTE | 2016-11-18 16:36 | NUR ---
ADMINSITERED 2 UNITS OF HUMALOG FOR BLOOD SUGAR OF 165, PER SLIDING SCALE. PT IN BED, DENIES ANY NEEDS AT THIS TIME. CALL LIGHT IN REACH, NAD NOTED, WILL CONTINUE TO MONITOR.
[2016-11-18 18:09] VITALS: BP 134/74
--- NOTE | 2016-11-18 19:20 | NUR ---
PATIENT A&Ox3, STABLE, INTERMITTENT PAIN TO HEELS BILAT. ON TELE, LUNGS CLEAR, HYPOACTIVE BOWEL SOUNDS. 22G PIV TO RIGHT HAND WITH INFUSION PUMP OFF. ON 2 LPM O2 VIA NASAL CANULA. BOX ALARM ATTACHED. HOB ELEVATED 45 DEGREES, BED RAILS UP x2, CALL LIGHT WITHIN REACH, BED IN LOWEST LOCKED POSITION. NO SCD
[2016-11-18 19:45] VITALS: BP 123/61
[2016-11-19 02:05] VITALS: BP 128/70
--- NOTE | 2016-11-19 02:19 | NUR ---
LYING IN BED WITH CALL LIGHT IN REACH. WILL CONTINUE WITH PLAN OF CARE.
[2016-11-19 05:19] VITALS: BP 132/74
--- NOTE | 2016-11-19 06:52 | NUR ---
RECEIVED REPORT FROM AGING ROOM HAND NURSE, KALPESH KAPLAN. PT IN BED, SLEEPING AT THIS TIME. CALL LIGHT IN REACH, BOX ALARM ON, NAD NOTED, WILL CONTINUE TO MONITOR.
[2016-11-19 08:50] VITALS: BP 103/58
--- NOTE | 2016-11-19 08:58 | NUR ---
ADMINISTERED MORNING MEDICATIONS, EXCEPT LISINOPRIL SINCE BP IS A LITTLE LOW THIS AM. PT IN BED, DENIES ANY NEEDS AT THIS TIME. CALL LIGHT IN REACH, BOX ALARM ON, NAD NOTED, WILL CONTINUE TO MONITOR.
--- NOTE | 2016-11-19 11:33 | NUR ---
ADMINISTERED 2 UNIT OF HUMALOG FOR BLOOD SUGAR OF 170, PER SLIDING SCALE. PT IN BED, DENIES ANY NEEDS AT THIS TIME. CALL LIGHT IN REACH, NAD NOTED, WILL CONTINUE TO MONITOR.
[2016-11-19 12:27] VITALS: BP 132/78
--- NOTE | 2016-11-19 13:25 | NUR ---
Nutrition Follow Up: Pt was sleeping soundly and no family present at the time of RD visit. Pt interview deferred at this time. Chart reviewed. Noted pt with confirmed lung mass that is cancer. Noted R heel with unstageable ulcer and DTI to L heel. Diet: Diabetic PO Intake: 32% (9 meal avg) I>O +BM 11/18/16 No new wt Labs noted - Glucose elevated Meds: 1/2 NS @ 30 ml/hr, Lantus, Humalog, Zofran Pt with poor po intake at this time. Rec consider liberalizing diet to encourage po intake. Will send Glucerna with meals. Will continue to provide selective menus and honor food preferences. RD following.
--- NOTE | 2016-11-19 14:44 | NUR ---
CONSENTS FOR PORT PLACEMENT TOMORROW SIGNED BY PT AND PLACED ON CHART. PT IN BED, AT THIS TIME, DENIES ANY NEEDS AT THIS TIME. CALL LIGHT IN REACH, NAD NOTED, WILL CONTINUE TO MONITOR.
--- NOTE | 2016-11-19 16:22 | NUR ---
ADMINISTERED 2UNITS OF HUMALOG FOR BLOOD SUGAR OF 155, PER SLIDING SCALE. PT IN BED, DENIES ANY NEEDS AT THIS TIME. CALL LIGHT IN REACH, NAD NOTED, WILL CONTINUE TO MONITOR.
[2016-11-19 16:28] VITALS: BP 116/59
--- NOTE | 2016-11-19 17:00 | NUR ---
WENT INTO PT'S ROOM TO ADMINISTER MIRALAX, ASKED PT IF HE WANTED TO SIT UP TO EAT HIS DINNER AND PT STATED " NOT RIGHT NOW MAYBE LATER".
--- NOTE | 2016-11-19 17:50 | NUR ---
PT'S SISTER IN LAW AT BEDSIDE AT THIS TIME. INFOMRED HER THAT DR. QUINTERO HAS BEEN TRYING TO GET A HOLD OF PT'S AND SHE HAS BEEN UNSUCCESSFUL. PT'S SISTER IN LAW PROVIDED ME WITH PT'S 'S CELL PHONE NUMBER. NOTE LEFT FOR DR. QUINTERO ON FRONT OF CHART FOR HER TO CALL. CELL PHONE NUMBER IS [phone].
[2016-11-19 20:50] VITALS: BP 139/73
--- NOTE | 2016-11-19 21:09 | NUR ---
RESTING IN BED WATCHING TV WHILE RECEIVEING UPDRAFT. ALERT ORIENTED. DOESNT TALK MUCH. DENIES NEEDS. NO ACUTE DISTRESS NOTED
[2016-11-20 02:50] VITALS: BP 140/82
--- NOTE | 2016-11-20 04:57 | NUR ---
CALL LIGHT IN REACH, WILL CONTINUE WITH PLAN OF CARE.
[2016-11-20 05:22] VITALS: BP 136/70
--- NOTE | 2016-11-20 07:40 | NUR ---
received pt report. no other needs at this time. will continue plan of care.
[2016-11-20 08:00] VITALS: BP 130/67
--- NOTE | 2016-11-20 10:34 | NUR ---
PT IS ALERT. ASSESSMENT DONE PER FLOWSHEET. NO CO PAIN AT THIS TIME. WILL CONTINUE TO MONITOR.
--- NOTE | 2016-11-20 13:15 | OP ---
PATIENT NAME: JAYJAY WEI MEDICAL RECORD: [id number] :31 LOCATION:D.M2 D.2102 ADMISSION DATE:11/11/16 SURGEON: JEFFERSON VERNON MD DATE OF OPERATION: 11/20/2016 PREOPERATIVE DIAGNOSES: 1. Nonsmall cell lung cancer. 2. Diabetes mellitus. 3. Chronic kidney disease. 4. Chronic obstructive pulmonary disease. 5. Tobacco dependence syndrome. POSTOPERATIVE DIAGNOSES: 1. Nonsmall cell lung cancer. 2. Diabetes mellitus. 3. Chronic kidney disease. 4. Chronic obstructive pulmonary disease. 5. Tobacco dependence syndrome. PROCEDURE: Left subclavian vein port placement with fluoroscopic interpretation. SURGEON: Jefferson Vernon MD REPORT OF PROCEDURE: The patient's left chest was prepped and draped in sterile fashion. A needle was used to cannulate the left subclavian vein. The guidewire was advanced with ease. A fluoroscopic guidance was used to note that the wire was in good position in the venous system. A skin incision was made on the left chest and then a subcutaneous pouch was made over the pectoral fascia. The catheter was tunneled between this pouch and the wire exit site. The catheter was then sutured to the pectoral fascia using interrupted 2-0 Prolene times 2. The catheter was cut with a beveled tip at 25 cm. The dilator trocar device was placed over the wire and the wire and dilator were removed. The catheter tip was advanced through the trocar and the trocar was removed. The catheter tip rest in good position in the right atrial superior vena caval junction. The catheter aspirated nonpulsatile dark blood and flushed easily with heparinized saline. The skin incision was closed with a layer of 3-0 Vicryl followed by a layer of running subcutaneous 5-0 Monocryl. We then accessed the port. COMPLICATIONS: None. CONDITION: Stable. ANESTHESIA: General endotracheal. BLOOD LOSS: Minimal. TRANSINT:[id number] Voice Confirmation ID: [id number] DOCUMENT ID: [id number] OPERATIVE REPORT [id number] JAYJAY WEI CHRISTIAN MD at 1315 CC: [id number] DICTATION DATE: 11/20/16 1226 BIOLOGICAL TECHNICAL OFFICER: 11/20/16 1309 ADM IN [address] [place] [address]
--- NOTE | 2016-11-20 13:18 | NUR ---
NO SS OF DISTRESS NO OTHER NEEDS AT THIS TIME. WILL CONTINUE TO MONITOR.
[2016-11-20 16:00] VITALS: BP 117/71
[2016-11-20 20:35] VITALS: BP 136/65
--- NOTE | 2016-11-20 21:52 | NUR ---
RESTING IN BED WATCHING TV. ALERT ORIENTED. DOESNT TALK MUCH. DENIES NEEDS
--- NOTE | 2016-11-20 23:43 | NUR ---
LAYING IN BED WITH EYES CLOSED, RESPIRATIONS OBSERVED. EVEN AND UNLABORED. CONTINUE TO MONITOR
[2016-11-21 00:45] VITALS: BP 166/78
[2016-11-21 04:20] VITALS: BP 149/76
--- NOTE | 2016-11-21 07:31 | NUR ---
AM ROUNDING- PT LAYING IN BED ON BACK WITH EYES CLOSED RESTING. ON MONITOR SHOWING SR, HR 99. ON 02 AT 2L VIA NC. IV SEEN TO LEFT INFUSAPORT WITH NS RUNNING AT 30CC. PT IS ON LOVENOX FOR DVT PREVENTION. PT HAS URINAL AND BEDSIDE COMMODE AT BEDSIDE. NO NEED AT CURRENT TIME. WILL CONTINUE TO MONITOR.
[2016-11-21 07:47] VITALS: BP 145/66
--- NOTE | 2016-11-21 07:53 | NUR ---
ON EP. AWAITING AM LAB RESULTS.
[2016-11-21 08:39] LABS: BASOPHILS 0.4 % (0.0-2.0); EOSINOPHILS 5.3 % (0-7); HEMATOCRIT 40.7 % (42.0-54.0); HEMOGLOBIN 12.6 g/dL (13.5-17.5); IMMATURE GRANULOCYTES 0.2 % (0-5); LYMPHOCYTES 17.8 % (15-50); MCH 27.4 pg (26.0-34.0); MCV 88.5 fL (80.0-100.0); NEUTROPHILS 69.3 % (40-80); PLATELET COUNT 372 10x3/uL (130-400); RDW 14.8 % (11.5-14.5); WBC 8.3 10x3/uL (4.8-10.8)
[2016-11-21 09:03] LABS: ANION GAP 9.8 mmol/L (8-16); CARBON DIOXIDE 29.9 mmol/L (21.0-32.0); CREATININE - SERUM 1.1 mg/dL (0.6-1.3); POTASSIUM - SERUM 4.7 mmol/L (3.5-5.1)
[2016-11-21 10:54] LABS: PHOSPHOROUS 3.1 mg/dL (2.5-4.9)
[2016-11-21 11:50] VITALS: BP 123/71
[2016-11-21 15:54] VITALS: BP 115/63
--- NOTE | 2016-11-21 18:22 | NUR ---
PT LAYING IN BED ON BACK WATCHING TV. DENIES ANY NEED AT CURRENT TIME. WILL CONTINUE TO MONITOR.
[2016-11-21 20:10] VITALS: BP 125/61
[2016-11-22 00:35] VITALS: BP 141/58
[2016-11-22 04:28] VITALS: BP 118/56
[2016-11-22 06:37] LABS: MAGNESIUM - SERUM 1.8 mg/dL (1.8-2.4); PHOSPHOROUS 2.9 mg/dL (2.5-4.9); POTASSIUM - SERUM 4.1 mmol/L (3.5-5.1)
--- NOTE | 2016-11-22 07:24 | NUR ---
AM ROUNDING- PT LAYING IN BED ON BACK WITH EYES OPEN RESTING. ON MONITOR SHOWING ST, HR 106. IV SEEN TO LEFT INFUSAPORT WITH NS RUNNING AT 30CC. ON 02 VIA NC AT 2L. PT IS ON LOVENOX FOR DVT PREVENTION. FSBS ACHS THAT WAS 160 THIS AM, COVERED BY STAPLE CUTTER NURSE MARIAELENA. NON NEED AT CURRENT TIME. WILL CONTINUE TO MONITOR.
[2016-11-22 08:00] VITALS: BP 120/64
[2016-11-22 12:00] VITALS: BP 93/54
--- NOTE | 2016-11-22 14:16 | NUR ---
Rehab Prescreening Consult recieved and the chart has been reviewed. Mr Armendariz is known to rehab from a previous stay. Previously the business office had him admitted with Medicare as his primary insurance. Currently he is admitted with BCBS as a primary. BCBS will not cover rehab at [facility]. We will need to check with the business office on Wednesday morning to see which is the patient's primary insurance in order to proceed with this eval. Rehab appoligizes for this inconvience. Hanna Marmolejo RN Clinical Liaison, Rehab
[2016-11-22 14:32] VITALS: BP 118/66
--- NOTE | 2016-11-22 18:42 | NUR ---
PT SITTING UP IN BED EATING DINNER. NO NEED AT CURRENT TIME. WILL CONTINUE TO MONITOR.
--- NOTE | 2016-11-22 19:30 | NUR ---
ASSESSMENT COMPLETE, DENIES NEEDS AT THIS TIME. HOB UP SR UP X2, C/L IN REACH. RESP UNAL WITH O2 @ 2L NC IN USE. NS INFUSING W/O DIFF VIA PUMP AT 30CC/HR TO LEFT IP. USES URINAL W/O DIFF. ON LOVENOX INJECTIONS. TELEMETRY IN PLACE SHOWING HR ST PER MANAGER ENERGY. CONTINUE TO MONITOR.
[2016-11-22 20:00] VITALS: BP 119/64
--- NOTE | 2016-11-22 21:26 | NUR ---
FSBS "212" COVERED PER S/S ORDERS WITH 4 UNITS HUMALOG INSULIN SQ AND LANTUS 50 UNITS SQ SCHEDULED. CITLALY INJECTIONS WELL. C/L IN REACH.
--- NOTE | 2016-11-22 23:01 | NUR ---
EYES CLOSED, RESP UNLAB WITH NO S/S OF ACUTE DISTRESS NOTED. C/L IN REACH.
[2016-11-23 00:33] VITALS: BP 124/67
--- NOTE | 2016-11-23 04:38 | NUR ---
DONNA CARE AND LINEN CHANGE FOR STOOL INCONT EPISODE. REPOSITIONED TO LEFT SIDE. CITLALY WELL. HOB UP SR UP X2, C/L IN REACH. CONTINUE TO MONITOR.
[2016-11-23 05:19] VITALS: BP 126/64
--- NOTE | 2016-11-23 11:49 | NUR ---
PATIENT HAS BEEN UP IN CHAIR FOR MEALS. CITLALY WELL. HAS HAD A BM TODAY WILL CONTINUE TO MONITOR
--- NOTE | 2016-11-23 14:19 | NUR ---
Patient Name: JAYJAY WEI Admission Status: Elective Accout number: [id number] Admission Date: 11-11-2016 : 1935 Admission Diagnosis:PNEUMONIA, UNSPECIFIED ORGANISM Attending: AI Current LOS: 12 Anticipated DC Date: 11-24-2016 Planned Disposition: Long-Term Facility Primary Insurance: BLUE CROSS TRUE BLUE PPO PLANNED EXTERNAL PROVIDER: TO BE DETERMINED Discharge Planning Comments: CM REVIEWED CHART; CM RECEIVED MESSAGE FROM PT'S DIPLOMA MEDICAL ASSISTANT WHO REPORTED THAT PT IS NOT MEETING CRITERIA FOR INPATIENT REHAB AND WILL AUTHORIZE [facility] WHEN REQEUST IS RECEIVED. CM MET WITH PT IN ROOM TO DISCUSS DISCHARGE PLANNING AND NEEDS. CM EXPLAINED THAT [facility] INPATIENT HAD NO AVAILABLE BEDS AND THAT PT IS NOT STRONG ENOUGH TO TOLERATE THREE HOURS OF PROGRESSIVE THERAPY PER DAY WELL ADVISED OF DIPLOMA MEDICAL ASSISTANT'S COMMENTS. CM RECOMMENDED [facility] FOR REHAB, PROVIDED AND DISCUSSED LISTING OF LOCAL [facility] REHABS. PT DOES NOT WANT TO MAKE A DECISION AND REPORTS HIS MAKES ALL OF THOSE DECISIONS FOR HIM. PT WILL DISCUSS PLACEMENT WITH HIS AND LET CM KNOW DECISION AFTER SHE VISITS SOMETIME TODAY. CM PROVIDED CM CONTACT INFORMATION TO PT WITH SNF LISTING. CM ALSO PROVIDED AND DISCUSSED IMPORTANT MESSAGE FROM MEDICARE. CM ATTEMPTED TO CALL PT'S SPOUSE, NICK WEI, , LEFT MESSAGE ASKING FOR RETURN CALL SOON POSSIBLE. PT WILL NOT DECIDE ON [facility] FACILITY FOR REHAB, REPORTS HIS WILL MAKE THE DECISION. CM WAITING PT'S SPOUSE TO CONTACT CM. Roof Bolter Helper: Enio Montano
--- NOTE | 2016-11-23 15:28 | NUR ---
Patient Name: JAYJAY WEI Encounter No: [id number] : 1935 Primary Insurance: BLUE CROSS TRUE BLUE PPO Anticipated DC Date: 11-24-2016 Planned Disposition: Detention Facility External Planned Provider: JOYCELYN MADDOX SKILLED REHAB BED DCP follow-up note: CM RECEIVED CALL FROM NICK WEI, PT'S SPOUSE. CM EXPLAINED NEED FOR [facility]. CM REVIEWED LOCAL [facility] LOCATIONS; NICK ASKED FOR REFERRAL TO BE SENT TO [facility] IT IS CLOSE TO HER HOME. CHOICE LETTER COMPLETED. CM FAXED REFERRAL TO [facility], ; CM CALLED AND NOTIFED HERBERT ALMONTE, CLINICAL LIAISON, , OF REFERRAL. CM WAITING ADMISSION DETERMINATION FROM [facility] AND INSURANCE AUTHORIZATION FOR REHAB SERVICES. Enio Montano, CASE MANAGEMENT
--- NOTE | 2016-11-23 17:30 | NUR ---
AWAKE ALERT, RESP UNLAB WITH O2 @ 2L NC IN USE. IN BED WITH HOB UP SR UP X2, C/L IN REACH, TELEMETRY SHOWING HR SR PER HOTEL SERVER. REFUSING DINNER AT THIS TIME. CONTINUE TO MONITOR.
--- NOTE | 2016-11-23 21:13 | NUR ---
FSBS "111" NO COVERAGE PER S/S ORDERS. HOLDING LANTUS DOSE THIS PM.
[2016-11-23 21:43] VITALS: BP 133/67
--- NOTE | 2016-11-23 21:57 | NUR ---
PM MEDS GIVEN W/O DIFF. NORCO 10MG PO GIVEN FOR C/O ALL OVER PAIN. HOB UP SR UP X2, C/L IN REACH.
--- NOTE | 2016-11-23 22:42 | NUR ---
VOICES NO C/O PAIN OR DISCOMFORT AT THIS TIME UPON AROUSAL. HOB UP SR UP X2, C/L IN REACH. CONTINUE TO MONITOR.
[2016-11-24 01:28] VITALS: BP 118/70
[2016-11-24 05:45] VITALS: BP 134/66
[2016-11-24 07:52] VITALS: BP 123/68
--- NOTE | 2016-11-24 08:10 | NUR ---
ASSESSMENT DONE. PT AWAKE AND FOLLOWING COMMANDS. DID NOT SPEAK TO THIS NURSE. ASSISTED INSURANCE VERIFICATION REP WITH REPOSITIONING PT IN BED AND SETTING UP BREAKFAST TRAY. CALL LIGHT WITH IN REACH. WILL CONT. TO MONITOR.
--- NOTE | 2016-11-24 09:39 | NUR ---
SITTING UP IN BED WITHOUT ANY COMPLAINTS. WILL CONTINUE TO MONITOR
--- NOTE | 2016-11-24 10:20 | NUR ---
PT UP WITH PHYSICAL THERAPY. THERAPIST REPORTS PT WAS ABLE TO TAKE 2 STEPS WITH MODERATE ASSIST. PT NOW SITTING UP IN CHAIR AT BED SIDE.
--- NOTE | 2016-11-24 10:40 | NUR ---
Nutrition follow-up: Diet has been changed to regular with po intake ~25%-50% of meals Labs reviewed +BM NO new wt Pt working with speech Waiting for Rehab placement. chemotherapy RDN will order Ensure with meals to increase kcal/protein intake. RDN following.
[2016-11-24] MEDS ORDERED: CELEXA20 MG PO (11:09)
[2016-11-24 12:08] VITALS: BP 123/60
--- NOTE | 2016-11-24 13:51 | NUR ---
PT RESTING. HOB ELEVATED. RESP EVEN AND UNLABORED. APPEARS COMFORTABLE. CALL LIGHT WITH IN REACH. WILL CONT. TO MONITOR.
[2016-11-24 15:51] VITALS: BP 144/70
--- NOTE | 2016-11-24 16:29 | NUR ---
PT A/O WATCHING TV. DENIES NEEDS. NO DISTRESS NOTED. CALL LIGHT WITH IN REACH. WILL CONT. TO MONITOR.
--- NOTE | 2016-11-24 17:09 | NUR ---
SUPPER TRAY ARRIVED. THIS NURSE ATTEMPTED TO SET UP TRAY FOR PT. PT REFUSED SUPPER AND STATES HE WILL JUST DRINK THE ENSURE. NURSE OFFERED TO CALL KITCHEN AND HAVE ALTERNATIVE MEAL BROUGHT UP. PT DECLINED.
--- NOTE | 2016-11-24 17:39 | NUR ---
PT'S FAMILY HERE. PT IS NOW EATING HIS SUPPER. SITTING UP IN BED WITH HOB ELEVATED 90 DEGREES.
--- NOTE | 2016-11-24 18:34 | NUR ---
PT RESTING. APPEARS COMFORTABLE. RESP EVEN AND UNLABORED. CALL LIGHT WITH IN REACH.
--- NOTE | 2016-11-24 19:30 | NUR ---
ASSESSMENT COMPLETE, DENIES NEEDS AT THIS TIME. LYING SUPINE WITH HOB UP SR UP X2, C/L IN REACH, WATCHING TV. NS INFUSING W/O DIFF VIA PUMP AT 30CC/HR TO LEFT IP NO R/S NOTED AT SITE. USES URINAL W/O DIFF, DOES HAVE SOME INCONT EPISODES, DONNA CARE AND LINEN CHANGE DONE AT THOSE TIMES. BILAT FEET UP ON PILLOW FOR C & C, HEELS WITH ESCAR NOTED. CONTINUE TO MONITOR. TELEMETRY SHOWING HR SR, RESP UNLAB WITH O2 @ 2L NC IN PLACE.
[2016-11-24 21:06] VITALS: BP 150/72
--- NOTE | 2016-11-24 21:24 | NUR ---
FSBS "240" COVERED WITH 4 UNITS HUMALOG INSULIN PER S/S ORDERS AND 50 UNITS LANTUS SQ PER ORDERS. CITLALY INJECTIONS WELL. SNACK GIVEN AND IS EATING SITTING UP IN BED. C/L IN REACH.
--- NOTE | 2016-11-24 23:42 | NUR ---
EYES CLOSED, RESP UNLAB WITH NO S/S OF ACUTE DISTRESS NOTED. C/L IN REACH. CONTINUE TO MONITOR.
[2016-11-25 00:43] VITALS: BP 137/70
[2016-11-25 05:26] VITALS: BP 138/58
--- NOTE | 2016-11-25 07:50 | NUR ---
ASSESSMENT DONE. PT SLEEPING. EASILY AROUSED. A/O X3. NO DISTRESS NOTED. DENIES NEEDS AT THIS TIME. CALL LIGHT WITH IN REACH. WILL CONT. TO MONITOR.
[2016-11-25 08:00] VITALS: BP 120/71
--- NOTE | 2016-11-25 10:17 | NUR ---
RESP UL ON . IV PATENT. CALL LIGHT IN REACH. WILL CONT. PLAN OF CARE.
[2016-11-25 12:00] VITALS: BP 113/56
--- NOTE | 2016-11-25 12:29 | NUR ---
PT SLEEPING. NURSE WOKE PT UP TO SET UP LUNCH TRAY. PT DECLINED FOOD AT THIS TIME. STATES HE WANTS TO SLEEP FOR A LITTLE BIT. TRAY LEFT IN ROOM. CALL LIGHT WITH IN REACH. WILL ATTEMPT TO ENCOURGE PT TO EAT AFTER HE TAKES A SHORT NAP.
--- NOTE | 2016-11-25 14:41 | NUR ---
OFFERED PT LUNCH TRAY AGAIN. PT DECLINED. HE DID AGREE TO DRINK ENSURE. HE SAID HE WILL EAT SUPPER.
--- NOTE | 2016-11-25 15:30 | DS ---
PATIENT:JAYJAY WEI :31 MEDICAL RECORD: [id number] DISCHARGE SUMMARY ADMISSION DATE: 11/11/16 DISCHARGE DATE: DATE OF ADMISSION: 11/11/2016 DATE OF DISCHARGE: 11/24/2016 ADMITTING DIAGNOSES: 1. Pneumonia. 2. Shortness of breath. 3. Acute weakness. 4. Suspected lung mass. 5. Diabetes mellitus. 6. Chronic kidney disease. 7. Chronic obstructive pulmonary disease. 8. Anemia of chronic renal failure. 9. History of pulmonary embolus and history of deep venous thrombosis. This is a patient admitted from [facility] rehab to acute setting. CONSULTANTS: Dr. Martínez with pulmonary. His recommendations were followed. Dr. Peña hematology/oncology, her recommendations were followed. Interventional radiology. 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 Further consultants included Dr. Jefferson Hlolins with surgery, port was placed, staging was done during the stay, bone scan negative for mets. MRI of the head was negative for any mets. He completed the treatment for pneumonia. He was very weak and needed rehab prior to any initiation of chemo. He is transferred to rehab today. Please refer to med rec. Other consultants during the stay included physical therapy and speech therapy. Please refer to well documented notes in the records. All events, lab procedures and diagnostic testing are well documented in the records. DISCHARGE DIAGNOSES: 1. Pneumonia. 2. Shortness of breath. 3. Acute weakness. 4. Suspected lung mass. 5. Diabetes mellitus. 6. Chronic kidney disease. 7. Chronic obstructive pulmonary disease. 8. Anemia of chronic renal failure. 9. History of pulmonary embolus and history of deep venous thrombosis. 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 11. Status post port placement. 12. Deconditioning and weakness. His primary care physician is Dr. Varela. Greater than 30 minutes was spent on this discharge. TRANSINT:[id number] Voice Confirmation ID: [id number] DOCUMENT ID: [id number] DISCHARGE SUMMARY REPORT [id number] JAYJAY WEI Dictated By: THO RESTREPO RN I have interviewed/examined the above patient and agree with these documented findings. LORETO BURKS MD at 1530 at 1554 CC: [id number] DICTATION DATE: 11/24/16 1614 MANAGER INTENSIVE CARE: 11/24/161948 ADM IN [facility] [address] [id number]
[2016-11-25 15:55] VITALS: BP 119/59
--- NOTE | 2016-11-25 17:17 | NUR ---
PT SITTING UP IN BED EATING SUPPER. DENIES NEEDS AT THIS TIME. CALL LIGHT WITH IN REACH. WILL CONT. TO LUPE.
--- NOTE | 2016-11-25 18:05 | NUR ---
PT AWAKE AND WATCHING TV. A/O. NO DISTRESS NOTED. CALL LIGHT WITH IN REACH. WILL CONT. TO MONITOR.
[2016-11-25 20:02] VITALS: BP 139/66
--- NOTE | 2016-11-25 20:11 | NUR ---
REPOSITIONED IN BED FOR COMFORT.
[2016-11-26] VITALS: BP 113/67
--- NOTE | 2016-11-26 04:11 | NUR ---
LVN LPN AT BEDSIDE TO OBTAIN VITALS, CALL LIGHT IN REACH. WILL CONTINUE WITH PLAN OF CARE.
[2016-11-26 04:19] VITALS: BP 120/67
--- NOTE | 2016-11-26 06:03 | NUR ---
CERTIFIED DIABETES EDUCATOR AT BED SIDE, BATH AND LINEN CHANGE COMPELTE. REPOSITIONED IN BED FOR COMFORT. AM BLOOD SUGAR 104, NO COVERAGE PER S/S.
--- NOTE | 2016-11-26 07:15 | NUR ---
RECIEVED REPORT ON PATIENT, PATIENT IS ALERT AND ORIENTED AT THIS TIME. PATIENT HAS A L CHEST IP WITH NS INFUSING AT 30ML/HR. PATIENT IS SR ON MONITOR WITH A RATE OF 91 AT THIS TIME. PATIENT IS WEARING 2L/MIN OF O2 VIA NC WITH O2SAT 96%. PATIENT SITTING UP IN BED WATCHING TV, DENIES ANY NEEDS. WILL CONT TO MONITOR PATIENT. BED LOW AND LOCKED. CALL LIGHT IN REACH. CPOC.
[2016-11-26 07:59] VITALS: BP 128/67
--- NOTE | 2016-11-26 08:58 | NUR ---
Patient Name: JAYJAY WEI Encounter No: [id number] : 1935 Primary Insurance: BLUE CROSS TRUE BLUE PPO Anticipated DC Date: 11-24-2016 Planned Disposition: Retirement Facility External Planned Provider: JOYCELYN MADDOX SKILLED REHAB BED DCP follow-up note: CM CALLED HERBERT ALMONTE, CLINICAL LIAISON FOR [facility], , ASKED FOR UPDATE ON INSURANCE AUTHORIZATION. HERBERT REPORTS THAT SHE EXPECTS TO HAVE NEGOTIATED RATE WITH PT'S INSURANCE NO LATER THAN TODAY. SHE WILL NOTIFY CM SOON RATE IS NEGOTIATED AND FACILITY CAN ACCEPT. CM WAITING INSURANCE AUTHORIZATION / NEGOTIATED RATE FOR REHAB SERVICES. WITH [facility]. Enio Montano, CASE MANAGEMENT
--- NOTE | 2016-11-26 09:30 | NUR ---
MORNING MEDICATION GIVEN WITH NO ISSUES, ASSESSMENT DONE. DENIES ANY NEEDS OR COMPLAINTS AT THIS TIME. WILL CONT TO MONITOR. CPOC
--- NOTE | 2016-11-26 10:51 | NUR ---
PATIENT PORT DEACCESSED DUE TO HOSPITAL POLICY. PORT REACCESSED. ATTEMPTED WITH A 20G 1 IN, UNSUCCESSFUL DUE TO THE SWELLING. ATTEMPTED AGAIN WITH A 20G 1.5 IN SALLIE NEEDLE AND WAS SUCCESSFUL. DRESSING CHANGED. CDI. PORT INFUSING WITH NS AT 30ML/HR. CPOC
--- NOTE | 2016-11-26 11:30 | NUR ---
patient fsbs 162, 2 units of humalog given per sliding scale. cpoc
[2016-11-26 12:00] VITALS: BP 106/59
--- NOTE | 2016-11-26 12:26 | NUR ---
Patient Name: JAYJAY WEI Encounter No: [id number] : 1935 Primary Insurance: BLUE CROSS TRUE BLUE PPO Anticipated DC Date: 11-26-2016 Planned Disposition: Snf Facility External Planned Provider: JOYCELYN MADDOX SKILLED REHAB BED DCP follow-up note: RN MARK ASHLEY RECEIVED CALL FROM HERBERT, CLINICAL LIAISON FOR [employer], THEY HAVE CONTRACTED RATE WITH PT'S INSURANCE COMPANY AND WILL SHOT POLISHER PT THIS AFTERNOON. CM NOTIFIED PT IN ROOM. MARK ATTEMPTED TO CALL PT'S SPOUSE ON CELL, [phone], RECEIVED NO ANSWER. FOR DISCHARGE, FAX DISCHARGE INFORMATION TO [employer] AT [phone]; NURSE REPORT TO BE CALLED TO [employer] AT [phone]. [facility]AN [facility]OT POLISHER THIS AFTERNOON. Enio Montano, CASE MANAGEMENT
--- NOTE | 2016-11-26 14:00 | NUR ---
REPORT CALL TO ANTONIO MAHONEY LPN AT [facility]. ANSWERED QUESTIONS. DENIES ANY FURTER QUESTIONS OR NEEDS. WAITING ON TRANSPORT. CPOC
--- NOTE | 2016-11-26 14:45 | NUR ---
PATIENT PORT DEACCESSED. PORT FLUSHED WITH 5ML OF HEPARIN PER HOSPITAL PROTOCOL. PATIENT GIVEN DC INSTRUSTIONS. STATES UNDERSTANDING. WILL CONT TO MONITOR PATIENT. WAITING FOR TRANSPORT. CPOC
--- NOTE | 2016-11-26 15:26 | NUR ---
Patient Name: JAYJAY WEI Encounter No: [id number] : 1935 Primary Insurance: BLUE CROSS TRUE BLUE PPO Anticipated DC Date: 11-26-2016 Planned Disposition: Fdc Facility External Planned Provider: JOYCELYN MADDOX SKILLED REHAB BED DCP follow-up note: MARK ATTEMPTED TO CALL PT'S SPOUSE, NICK WEI, , LEFT MESSAGE. CM FAXED DISCHARGE INFORMATION TO [facility] AT [phone]. NURSE REPORT TO BE CALLED TO [facility] AT [phone]. [facility] TO PROVIDE VAN COST CONTROL ANALYST THIS AFTERNOON. Enio Montano, CASE MANAGEMENT
--- NOTE | 2016-11-26 15:30 | NUR ---
ELIZABETH MADDOX HERE FOR PICKUP. BELONGINGS GIVEN TO TRANSPORTER.
== END 2016-11-26 16:16 | DRG 180 ==
LOC: D.M2 17:09
PROVIDERS: Family Medicine; Family Medicine Adult Medicine; General Practice; Internal Medicine Pulmonary Disease; ADMIT Emergency Medicine
PROC: 0BBG3ZX Excision of Left Upper Lung Lobe, Percutaneous Approach, Diagnostic (ICD-10-PCS; principal; 2016-11-13 11:03)
DX: C34.12 Malignant neoplasm of upper lobe, left bronchus or lung (principal); J18.9 Pneumonia, unspecified organism; J44.1 Chronic obstructive pulmonary disease with (acute) exacerbation; I10 Essential (primary) hypertension; E11.9 Type 2 diabetes mellitus without complications; I12.9 Hypertensive chronic kidney disease with stage 1 through stage 4 chronic kidney disease, or unspecified chronic kidney disease; N18.9 Chronic kidney disease, unspecified; E87.5 Hyperkalemia; G72.9 Myopathy, unspecified

== ENCOUNTER 2016-12-25 14:00 | Inpatient (IN) | payer MEDICARE ==
[~2016-12-25] VITALS: Ht 182.9 cm; Wt 81.6 kg
[~2016-12-25 14:00] MED LIST changes: +CELEXA20 MG PO
[2016-12-25 15:43] LABS: BASOPHILS 0.4 % (0.0-2.0); EOSINOPHILS 4.9 % (0-7); HEMATOCRIT 37.9 % (42.0-54.0); IMMATURE GRANULOCYTES 0.3 % (0-5); MCH 27.6 pg (26.0-34.0); MCHC 31.7 g/dL (31.0-37.0); MCV 87.3 fL (80.0-100.0); MEAN PLATELET VOLUME 9.8 fL (7.4-10.4); MONOCYTES 7.9 % (2-11); NEUTROPHILS 67.5 % (40-80); RBC 4.34 10x6/uL (4.20-6.10); RDW 15.5 % (11.5-14.5); WBC 9.4 10x3/uL (4.8-10.8)
[2016-12-25 15:48] LABS: PLATELET COUNT 279 10x3/uL (130-400)
[2016-12-25 16:04] LABS: ALBUMIN 2.5 g/dL (3.4-5.0); ANION GAP 9.8 mmol/L (8-16); BILIRUBIN - TOTAL 0.33 mg/dL (0.2-1.3); CALCIUM 8.9 mg/dL (8.5-10.1); CREATININE - SERUM 1.1 mg/dL (0.6-1.3); POTASSIUM - SERUM 4.8 mmol/L (3.5-5.1); PROTEIN - SERUM 7.7 g/dL (6.4-8.2)
--- NOTE | 2016-12-25 19:20 | NUR ---
Patient Name: JAYJAY WEI Admission Status: ER Accout number: [id number] Admission Date: 12-25-2016 : 1935 Admission Diagnosis: Attending: CATARINO Current LOS: 1 Anticipated DC Date: 12/28/16 Planned Disposition: Return to [facility] @ Discharge. Primary Insurance: MEDICARE A & B Discharge Planning Comments: Cm met with patient to complete initial discharge planning assessment. Patient gave consent to complete assessment. Prior to admission patient was at [facility] for rehab. He reports he had a fall on and has been in the hospital and rehab since that time. He has not ambulated since that fall. He had a cane prior to the fall he used for ambulatory aide. He has had several rounds of antibiotics to treat antibiotics for his pneumonia. He denied further dc needs at this time. Cm will continue to follow and assist with dc plans/needs. Intelligence Officer: Eboni Gale RN, CCM Is the patient Alert and Oriented? Yes * How many steps to enter\exit or inside your home? 0 * PCP Dr. Holland * Pharmacy [facility] [address] by [address] * Preadmission Environment Jail Facility * Facility Name [facility] * ADLs Total Dependent * Equipment Wheelchair at [place], Cane at home. * List name and contact numbers for known caregivers / representatives who currently or will assist patient after discharge: Amrita Wei - Bklwtp - [phone] * Community resources currently utilized None * Additional services required to return to the preadmission environment? No * Can the patient safely return to the preadmission environment? Yes * Has this patient been hospitalized within the prior 30 days at any hospital? No
[2016-12-25 20:51] VITALS: BP 121/62; BMI 24.4
[2016-12-25 21:03] VITALS: BP 121/62
[2016-12-26 00:59] VITALS: BP 106/61
[2016-12-26] MEDS ORDERED: ZOFRAN4 MG PO (01:39)
[2016-12-26] MEDS ORDERED: TUMS500 MG PO (01:41)
[2016-12-26 04:00] VITALS: BP 109/61
--- NOTE | 2016-12-26 06:46 | NUR ---
FSBG 54, 2 CONTAINERS OF ORANGE JUICE WERE GIVEN.
--- NOTE | 2016-12-26 07:25 | NUR ---
ASSESSMENT PER FLOW SHEET.PT WITHOUT DISTRESS.BLACKENED AREAS NOTED TO BILATERAL HEELS,SEE ASSESSMENT.HEEL PROTECTORS IN PLACE.MONITOR.FALL PREVENTION IN PLACE.
[2016-12-26 07:59] VITALS: BP 118/60
--- NOTE | 2016-12-26 09:07 | HP ---
PATIENT: JAYJAY WEI MEDICAL RECORD: [id number] ACCOUNT: [id number] LOCATION:D.MS [id number] : [birth year] ADMISSION DATE: 12/25/16 HISTORY AND PHYSICAL EXAMINATION HISTORY OF PRESENT ILLNESS: Mr. Wei is an 81-year-old black male patient who presents to the Emergency Room from the snf with increasing shortness of breath, cough and congestion, was hospitalized here in November and diagnosed with squamous cell carcinoma, was seen by Dr. Peña. He was supposed to follow up, apparently his could not take care of him at home and he ended up in the snf. He has not followed up yet apparently with oncology. His chest x-ray shows some increasing size in mass in left chest and further infiltrate. He has got a normal white count. He is admitted at this time for IV antibiotics, pulmonary toilet, and we will ask pulmonary and oncology to check him back. 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 PAST SURGICAL HISTORY: Include a ruptured disc repair, gallbladder surgery, and CT-guided lung biopsy. CURRENT MEDICATIONS: Include albuterol or DuoNeb updrafts, pantoprazole, MiraLax, benzonatate, lisinopril, gabapentin. See snf MAR for meds. FAMILY HISTORY: Significant for lung disease. SOCIAL HISTORY: The patient is . His has chronic medical problems also. REVIEW OF SYSTEMS: Significant for recent weakness, poor oral intake, shortness of breath, and coughing. PHYSICAL EXAMINATION: GENERAL: He appears mildly to moderately ill at this time, although in no distress. HEART: Regular. LUNGS: With bilateral crackles. ABDOMEN: Soft. NEUROLOGIC: Without any gross focal deficits. No edema. IMPRESSION: Squamous cell carcinoma with possible underlying pneumonia, generalized weakness. PLAN: Admit, pulmonary oncology consults, IV antibiotics, pulmonary toilet. See orders for plan. TRANSINT:[id number] Voice Confirmation ID: [id number] DOCUMENT ID: [id number] HISTORY AND PHYSICAL [id number] JAYJAY WEI MATTHEW DO at 0907 CC: [id number] DICTATION DATE: 12/25/161915 CHIEF OF POLICE: 12/25/161948 ADM IN [facility] [address] [id number]
[2016-12-26 09:55] VITALS: Ht 182.9 cm; Wt 81.6 kg
[2016-12-26 12:08] VITALS: BP 114/67
--- NOTE | 2016-12-26 15:25 | NUR ---
PORT DRESSING EDGES PEELING UP.DRESSING CHANGED TO LEFT PORT USING ADVERTISING AGENCY MANAGER.PT TOLERATED WELL.CALL LIGHT IN REACH
[2016-12-26 16:23] VITALS: BP 115/63
--- NOTE | 2016-12-26 17:28 | NUR ---
HAS REMAINED WITHOUT DISTRESS.WITHOUT CHANGE FROM INITIAL ASSESSMENT.CONT PLAN OF CARE
[2016-12-26 19:00] VITALS: BP 126/58
[2016-12-27] VITALS: BP 96/54
--- NOTE | 2016-12-27 00:15 | NUR ---
PATIENT ALERT AND DENIES NEEDS AT THIS TIME. KALPESH AT BEDSIDE GIVING MEDS. BED IN LOWEST POSITION AND CALL LIGHT WITHIN REACH.
[2016-12-27 04:00] VITALS: BP 91/49
[2016-12-27 08:07] VITALS: BP 113/60
--- NOTE | 2016-12-27 09:00 | NUR ---
ASSESSMENT PER FL0W SHEET.PT WITHOUT DISTRESS.CALL LIGHT IN REACH
--- NOTE | 2016-12-27 11:30 | NUR ---
WITHOUT DISTRESS.MONITOR
[2016-12-27 12:03] VITALS: BP 115/70
--- NOTE | 2016-12-27 15:28 | NUR ---
RESTING WITH EYES CLOSED.AWAKENS INT.CALL LIGHT IN REACH
[2016-12-27 16:07] VITALS: BP 110/60
--- NOTE | 2016-12-27 17:25 | NUR ---
EATING DINNER WITHOUT DISTRESS.CALL LIGHT IN REACH
--- NOTE | 2016-12-27 18:05 | NUR ---
REMAINS WITHOUT CHANGE.CONT PLAN OF CARE
[2016-12-27 21:43] VITALS: BP 117/57
--- NOTE | 2016-12-28 03:00 | NUR ---
PT LAYING IN BED WITH HEEL PADDING TO BILATERAL HEELS AND FEET BRIDGED DUE TO ESCAR OBSERVED BILATERAL HEELS AND SPONGEY AND BOGGEY FEEL. NO DISTRESS OBSERVED CALL LIGHT IN REACH SRX2 BED LOW AND LOCKED WILL MONITOR
[2016-12-28 05:00] VITALS: BP 97/55
[2016-12-28 09:54] LABS: BASOPHILS 0.6 % (0.0-2.0); EOSINOPHILS 5.7 % (0-7); HEMATOCRIT 36.6 % (42.0-54.0); HEMOGLOBIN 11.5 g/dL (13.5-17.5); IMMATURE GRANULOCYTES 0.2 % (0-5); LYMPHOCYTES 21.2 % (15-50); MCH 27.2 pg (26.0-34.0); MCHC 31.4 g/dL (31.0-37.0); MCV 86.5 fL (80.0-100.0); MEAN PLATELET VOLUME 9.6 fL (7.4-10.4); MONOCYTES 10.4 % (2-11); NEUTROPHILS 61.9 % (40-80); PLATELET COUNT 323 10x3/uL (130-400); RBC 4.23 10x6/uL (4.20-6.10); RDW 15.7 % (11.5-14.5); WBC 8.8 10x3/uL (4.8-10.8)
[2016-12-28 10:10] LABS: ALBUMIN 2.3 g/dL (3.4-5.0); ANION GAP 11.8 mmol/L (8-16); BILIRUBIN - TOTAL 0.48 mg/dL (0.2-1.3); CALCIUM 9.3 mg/dL (8.5-10.1); CARBON DIOXIDE 28.4 mmol/L (21.0-32.0); CREATININE - SERUM 1.3 mg/dL (0.6-1.3); POTASSIUM - SERUM 4.2 mmol/L (3.5-5.1); PROTEIN - SERUM 7.6 g/dL (6.4-8.2)
--- NOTE | 2016-12-28 10:24 | NUR ---
CM REASSESEMENT NOTE: WHEN PATIENT DISCHARGES HE WILL RETURN TO [facility]. PATIENT WAS IN SKILLED REHAB AT THE FACILITY. PATIENTS PCP IS DR. CROW AND PHARMACY IS [facility] [address]. PATIENT HAS A WALKER, BS COMMODE, GLUCOMETER, AND CANE AT HOME. CM WILL CONTINUE TO FOLLOW PATIENT WITH D/C NEEDS AND PLANS. PCP DR. [facility] [phone] NICKWILL WEI (SPOUSE) [phone]
[2016-12-28 12:31] VITALS: BP 114/54
[2016-12-28 16:37] VITALS: BP 104/68
--- NOTE | 2016-12-28 18:13 | NUR ---
REMAINS WITHOUT DISTRESS.REMAINS WITHOUT CHANGE FROM INITIAL ASSESSMENT.CONT PLAN OF CARE
--- NOTE | 2016-12-28 20:00 | NUR ---
ASSESSMENT PER FLOWSHEET. IV PATENT LEFT INFUSAPORT NS AT 75CC'S/HR. SITE CLEAR. O2 ON 2L/M PER NC. BOTH HEELS BLACK AND HARD SPOTS. HEELS BRIDGED WITH HEEL PROTECTORS ON.
[2016-12-28 21:00] VITALS: BP 115/62
--- NOTE | 2016-12-28 21:00 | NUR ---
MEDS GIVEN PER MAR. KMND=872. REGULAR INSULIN 2 UNITS SUBC GIVEN PER S/S
--- NOTE | 2016-12-29 | NUR ---
REPOSITIONED IN BED INC URINE LINENS CHANGED.
[2016-12-29 01:00] VITALS: BP 110/66
--- NOTE | 2016-12-29 02:00 | NUR ---
EYES CLOSED RESPIRATIONS WITH EASE AND UNLABORED.
--- NOTE | 2016-12-29 04:30 | NUR ---
FSBS=42. D50W ONE AMP GIVEN FOR LOW BLOOD SUGAR. INC URINE. LINENS CHANGED.
[2016-12-29 05:00] VITALS: BP 120/54
[2016-12-29 05:33] LABS: BASOPHILS 0.4 % (0.0-2.0); EOSINOPHILS 4.6 % (0-7); HEMATOCRIT 39.9 % (42.0-54.0); HEMOGLOBIN 12.3 g/dL (13.5-17.5); IMMATURE GRANULOCYTES 0.2 % (0-5); LYMPHOCYTES 20.7 % (15-50); MCHC 30.8 g/dL (31.0-37.0); MCV 87.7 fL (80.0-100.0); MEAN PLATELET VOLUME 9.7 fL (7.4-10.4); MONOCYTES 11.3 % (2-11); NEUTROPHILS 62.8 % (40-80); PLATELET COUNT 362 10x3/uL (130-400); RBC 4.55 10x6/uL (4.20-6.10); RDW 16.1 % (11.5-14.5)
[2016-12-29 06:01] LABS: ALBUMIN 2.4 g/dL (3.4-5.0); ANION GAP 12.1 mmol/L (8-16); BILIRUBIN - TOTAL 0.5 mg/dL (0.2-1.3); CALCIUM 9.4 mg/dL (8.5-10.1); CARBON DIOXIDE 29.2 mmol/L (21.0-32.0); CREATININE - SERUM 1.4 mg/dL (0.6-1.3); POTASSIUM - SERUM 4.3 mmol/L (3.5-5.1); PROTEIN - SERUM 8.2 g/dL (6.4-8.2)
--- NOTE | 2016-12-29 06:15 | NUR ---
RECHECKED BLOOD SUGAR AFTER DEXTROSE GIVEN RESULTS =125.
--- NOTE | 2016-12-29 07:00 | NUR ---
REPORT RECIEVED ASSUMED CARE. PATIENT IN BED WITH IV INTACT. NO COMPLAINTS AT THIS TIME. CALL LIGHT WITHIN REACH.
[2016-12-29 08:02] VITALS: BP 120/72
--- NOTE | 2016-12-29 08:08 | NUR ---
WOUND CARE CONSULT: NOTED BILATERAL HEELS HAVE UNSTAGEABLE PRESSURE INJURIES. LEFT HEEL IS 7CM X 7CM X HARD BLACK ESCHAR RIGHT HEEL IS 7CM X 7CM X HARD BLACK ESCHAR WITH PEELING EDGES. NO DRAINAGE NOTED BUT THERE IS A SLIGHT ODOR FROM RIGHT HEEL. HE HAS HEEL PROTECTORS IN PLACE AND HEELS ARE ALSO BEING BRIDGED ON PILLOWS. WOUND CARE WILL CONTINUE TO MONITOR.
[2016-12-29 12:39] VITALS: BP 120/63
--- NOTE | 2016-12-29 12:54 | NUR ---
NUTRITION MONITORING & EVAL CHART REVIEWED, PT VISIT. AHA/ADA DIET WITH ~75% INTAKE RECENT MEALS. CASE MGMT REPORTS PT LIKELY TO RETURN TO [facility]. WILL DEFER DIABETIC DIET EDU. RD FOLLOWING
--- NOTE | 2016-12-29 16:15 | NUR ---
PATIENT O2 SATS 66 AT THIS TIME. LAYING IN BED WITH NO O2 ON. PLACED BACK ON AND PATIENT HOB RAISED TO 40 DEGREES. SATS UP TO 88. WILL CONTINUE TO MONITOR.
[2016-12-29 16:30] VITALS: BP 147/61
--- NOTE | 2016-12-29 18:13 | NUR ---
PATIENT IN BED WITH IV INTACT. NO COMPLAINTS AT THIS TIME. EYES OPEN, CALL LIGHT WITHIN REACH.
--- NOTE | 2016-12-29 18:16 | NUR ---
PATIENT NOW 93% ON 2.5 L. IV INTACT. NO COMPLAINTS. LAYING ON AIR MATRESS PLACED EARLIER. HEEL PROTECTORS ON. CALL LIGHT WITHIN REACH.
--- NOTE | 2016-12-29 19:10 | NUR ---
ASSESSMENT COMPLETED, NO ACUTE DISTRESS NOTED, AIR MATTRESS AND NC IN PLACE, ALONG WITH HEEL PROTECTORS, DENIES PAIN OR NEEDS, FALL PRECAUTIONS IN PLACE, CL IN REACH, WILL MONITOR
--- NOTE | 2016-12-29 20:38 | NUR ---
MEDS GIVEN PER MAR, CITLALY WELL, REGULAR INSULIN NOT GIVEN DUE TO PT BS DROPPING AT NIGHT, WILL MONITOR, CL IN REACH
[2016-12-29 21:00] VITALS: BP 106/54
--- NOTE | 2016-12-29 23:45 | NUR ---
RESTING WITH EYES CLOSED, RESP WITH EASE, NC IN PLACE, CL IN REACH
--- NOTE | 2016-12-30 00:56 | NUR ---
IV AB'S HUNG PER JONY BS RECHECKED, NOW AT 89, SNACK PROVIDED, CITLALY WELL, CL IN REACH
[2016-12-30 01:00] VITALS: BP 112/59
[2016-12-30 05:00] VITALS: BP 110/60
--- NOTE | 2016-12-30 06:06 | NUR ---
BS 54, INSULIN HELD, ASSISTED PT IN DRINKING ORANGE JUICE, CITLALY WELL, ASYMPTOMATIC, WILL MONITOR, SAFETY PRECAUTIONS IN PLACE, CL IN REACH
[2016-12-30 06:20] LABS: ALBUMIN 2.2 g/dL (3.4-5.0); ANION GAP 12.3 mmol/L (8-16); BILIRUBIN - TOTAL 0.5 mg/dL (0.2-1.3); CALCIUM 9.1 mg/dL (8.5-10.1); CARBON DIOXIDE 27.1 mmol/L (21.0-32.0); CREATININE - SERUM 1.3 mg/dL (0.6-1.3); POTASSIUM - SERUM 4.4 mmol/L (3.5-5.1)
[2016-12-30 06:44] LABS: BASOPHILS 0.1 % (0.0-2.0); EOSINOPHILS 6.2 % (0-7); HEMATOCRIT 35.9 % (42.0-54.0); HEMOGLOBIN 11.3 g/dL (13.5-17.5); IMMATURE GRANULOCYTES 0.3 % (0-5); LYMPHOCYTES 17.8 % (15-50); MCH 27.4 pg (26.0-34.0); MCHC 31.5 g/dL (31.0-37.0); MCV 87.1 fL (80.0-100.0); MEAN PLATELET VOLUME 9.7 fL (7.4-10.4); MONOCYTES 9.7 % (2-11); NEUTROPHILS 65.9 % (40-80); PLATELET COUNT 323 10x3/uL (130-400); RBC 4.12 10x6/uL (4.20-6.10); WBC 7.1 10x3/uL (4.8-10.8)
--- NOTE | 2016-12-30 07:10 | NUR ---
SLEEPING QUIETLY AT PRESENT DENIES ANY NEEDS AT PRESENT AT IV CONT AT 75CC/HR/IP AT PRESENT.
[2016-12-30 08:31] VITALS: BP 115/66
--- NOTE | 2016-12-30 09:35 | NUR ---
MEDS TAKEN WITH THICKEN LIQS CITLALY WELL AT PRESENT.
--- NOTE | 2016-12-30 11:00 | NUR ---
REPOSITIONED IN BED AT PRESENT.
[2016-12-30 11:56] VITALS: BP 139/74
--- NOTE | 2016-12-30 13:00 | NUR ---
QUIET IN ROOM N/C AT PRESENT VOICED.
--- NOTE | 2016-12-30 15:00 | NUR ---
QUIET IN ROOM IN CONT OF URINE LINENS [facility] AT PRESENT HEEL PROTECTORS IN PLACE PAULIE MEPLIX TO BUTTOCKS.
[2016-12-30 16:20] VITALS: BP 104/54
--- NOTE | 2016-12-30 17:00 | NUR ---
FED BY MEDICAL SUPPORT ASSISTANT TAKEN 50% of diet at PRESENT.
--- NOTE | 2016-12-30 18:30 | NUR ---
FAMILY AT BEDSIDE TALKING TO PT SMILES .
--- NOTE | 2016-12-30 19:15 | NUR ---
BEDSIDE REPORT RECEIVED AND CARE OF PT ASSUMED. PT LYING IN SUPINE POSITION ON 1ST STEP AIR MATTRESS OVERLAY. LEFT INFUSAPORT ACCESSED WITH NS INFUSING AT 75 ML / HR. O2 IN USE AT 2L. TELEMETRY IN USE AND PT READING 91 SR W/ PVC'S. WILL MONITOR CLOSLEY FOR NEEDS.
[2016-12-30 21:00] VITALS: BP 112/66
--- NOTE | 2016-12-30 21:48 | NUR ---
HS MEDICATIONS GIVEN. FSBS 124 THIS CHECK, REQUIRING NO COVERAGE PER SLIDING SCALE. WILL CONTINUE TO MONITOR FOR NEEDS.
--- NOTE | 2016-12-31 00:05 | NUR ---
ALL BEDDING CHANGED DUE TO INCONTINTENT EPISODE. PT BATHED AND NEW GOWN PLACED. POSITIONED FOR COMFORT. CALL LIGHT WITHIN REACH.
[2016-12-31 02:30] VITALS: BP 130/68
[2016-12-31 05:00] VITALS: BP 122/70
[2016-12-31 06:42] LABS: BASOPHILS 0 % (0.0-2.0); HEMATOCRIT 39.4 % (42.0-54.0); HEMOGLOBIN 12.4 g/dL (13.5-17.5); IMMATURE GRANULOCYTES 0.3 % (0-5); MCH 27.4 pg (26.0-34.0); MCHC 31.5 g/dL (31.0-37.0); MCV 87.2 fL (80.0-100.0); MEAN PLATELET VOLUME 9.8 fL (7.4-10.4); MONOCYTES 8.7 % (2-11); PLATELET COUNT 316 10x3/uL (130-400); RBC 4.52 10x6/uL (4.20-6.10); RDW 15.9 % (11.5-14.5); WBC 7.5 10x3/uL (4.8-10.8)
[2016-12-31 07:03] LABS: ALBUMIN 2.4 g/dL (3.4-5.0); ANION GAP 11.2 mmol/L (8-16); BILIRUBIN - TOTAL 0.44 mg/dL (0.2-1.3); CALCIUM 9.2 mg/dL (8.5-10.1); CARBON DIOXIDE 29.3 mmol/L (21.0-32.0); CREATININE - SERUM 1.3 mg/dL (0.6-1.3); POTASSIUM - SERUM 4.5 mmol/L (3.5-5.1); PROTEIN - SERUM 7.4 g/dL (6.4-8.2)
--- NOTE | 2016-12-31 07:25 | NUR ---
ASSESSMENT PER FLOW SHEET.PT WITHOUT DISTRESS.DRESSING TO BUTTOCKS CLEAN,DRY AND INTACT.HEELS BRIDGED.FALL PREVENTION IN PROGRESS
[2016-12-31 08:35] VITALS: BP 136/61
--- NOTE | 2016-12-31 12:00 | NUR ---
REMAINS WITHOUT NEEDS.CALL LIGHT IN REACH
[2016-12-31 13:31] VITALS: BP 109/62
[2016-12-31 16:17] VITALS: BP 120/48
--- NOTE | 2016-12-31 18:00 | NUR ---
DENIES NEEDS.REMAINS WITHOUT CHANGE FROM INITIAL ASSESSMENT.CONT PLAN OF CARE
--- NOTE | 2016-12-31 19:00 | NUR ---
BEDSIDE REPORT RECEIVED AND CARE OF PT ASSUMED. PT LYING IN SUPINE POSITOIN ON 1ST STEP AIR MATTRESS OVERLAY. LEFT IP ACCESSED WITH NS INFUSING AT 75 ML / HR. TELEMETRY IN USE AND READING 109 ST W/ OCC PAC'S AT THIS ASSESSMENT. WILL MONITOR CLOSELY FOR NEEDS. CALL LIGHT WITHIN REACH.
[2016-12-31 20:00] VITALS: BP 137/64
--- NOTE | 2016-12-31 22:09 | NUR ---
HS MEDICATIONS GIVEN. WILL CONTINUE TO MONITOR FOR NEEDS.
[2017-01-01] VITALS: BP 110/55
--- NOTE | 2017-01-01 00:03 | NUR ---
CHANGED ALL LINENS AND GOWN DUE TO INCONTINENT EPISODE. REPLACED MEPILEX DRESSING ON COCCYX. WILL CONTINUE TO MONITOR FOR NEEDS.
--- NOTE | 2017-01-01 00:48 | NUR ---
PLACED URINAL TO TRY TO CATCH URINE FOR ORDERED UA / CX. PT REFUSED IN AND OUT CATH.
[2017-01-01 04:00] VITALS: BP 120/66
[2017-01-01 05:51] LABS: BASOPHILS 0.1 % (0.0-2.0); EOSINOPHILS 9.8 % (0-7); HEMOGLOBIN 11.3 g/dL (13.5-17.5); IMMATURE GRANULOCYTES 0.1 % (0-5); LYMPHOCYTES 15.8 % (15-50); MCH 27.2 pg (26.0-34.0); MCHC 31.4 g/dL (31.0-37.0); MCV 86.5 fL (80.0-100.0); MEAN PLATELET VOLUME 9.3 fL (7.4-10.4); MONOCYTES 6.2 % (2-11); PLATELET COUNT 280 10x3/uL (130-400); RBC 4.16 10x6/uL (4.20-6.10); RDW 16.1 % (11.5-14.5); WBC 7.9 10x3/uL (4.8-10.8)
--- NOTE | 2017-01-01 06:00 | NUR ---
CHANGED DRESSING ON INFUSAPORT. CHANGED ALL TUBING AND FLAGGED FOR NEXT CHANGE DATE.
[2017-01-01 06:13] LABS: ANION GAP 9.3 mmol/L (8-16); BILIRUBIN - TOTAL 0.4 mg/dL (0.2-1.3); CALCIUM 8.9 mg/dL (8.5-10.1); CARBON DIOXIDE 29.4 mmol/L (21.0-32.0); CREATININE - SERUM 1.4 mg/dL (0.6-1.3); POTASSIUM - SERUM 3.7 mmol/L (3.5-5.1); PROTEIN - SERUM 7.1 g/dL (6.4-8.2)
--- NOTE | 2017-01-01 06:39 | NUR ---
PT BATHED AND LOTIONED FROM HEAD TO TOE. ALL LINEN AND GOWN CHANGED. CHANGED DRESSING ON COCCYX. POSITIONED FOR COMFORT. CALL LIGHT WITHIN REACH.
[2017-01-01 08:13] VITALS: BP 113/61
--- NOTE | 2017-01-01 09:00 | NUR ---
ASSESSMENT PER FLOW SHEET.PT WITHOUT DISTRESS.DECLINES IN AND OUT CATH.PT INSTRUCTED WE NEED URINE FOR LAB.STATES HE WILL CALL WHEN HE HAS TO USE BATHROOM.
--- NOTE | 2017-01-01 11:30 | NUR ---
ATTEMPTED TO ASSIST PT WITH URINAL FOR UA ORDERED,BUT HE CONT TO DECLINE ASSIST.
[2017-01-01 12:26] VITALS: BP 117/62
--- NOTE | 2017-01-01 14:01 | NUR ---
STILL DECLINES LEMON CATH,URINE OBTAINED WITH NEW URINAL FOR LABS ORDERED.
[2017-01-01 14:17] LABS: APPEARANCE CLEAR (CLEAR); BACTERIA FEW /hpf (NONE SEEN); BILIRUBIN NEGATIVE (NEGATIVE); COLOR YELLOW (YELLOW); EPITHELIAL CELLS 0-5 /hpf (0-5); GLUCOSE NEGATIVE (NEGATIVE); KETONE NEGATIVE (NEGATIVE); LEUKOCYTE ESTERASE NEGATIVE (NEGATIVE); NITRITE NEGATIVE (NEGATIVE); PROTEIN TRACE mg/dL (NEGATIVE); RED CELLS - URINE 0-5 /hpf (0-5); UROBILINOGEN NORMAL (NORMAL); WHITE CELLS - URINE 0-5 /hpf (0-5)
--- NOTE | 2017-01-01 15:30 | NUR ---
ATTEMPTED INSERTION OF 16 MACANESE LEMON CATHETER USING GERM DRIER.UNABLE TO FULLY INSERT BECAUSE RESISTANCE MET.INSERTED 14 FRNECH IN AND OUT TO OBTAIN URINE SPECIMEN.GERM DRIER USED.APROX 300CC OF YELLOW URINE IN BAG.
[2017-01-01 16:02] VITALS: BP 137/63
[2017-01-01 16:32] LABS: APPEARANCE CLEAR (CLEAR); BILIRUBIN NEGATIVE (NEGATIVE); COLOR YELLOW (YELLOW); GLUCOSE NEGATIVE (NEGATIVE); KETONE NEGATIVE (NEGATIVE); LEUKOCYTE ESTERASE NEGATIVE (NEGATIVE); NITRITE NEGATIVE (NEGATIVE); PROTEIN NEGATIVE (NEGATIVE); SPECIFIC GRAVITY 1.015 (1.005-1.020); UROBILINOGEN NORMAL (NORMAL)
--- NOTE | 2017-01-01 18:46 | NUR ---
REMAINS WITHOUT DISTRESS.DENIES NEEDS.WITHOUT CHANGE FROM INITIAL ASSESSMENT.CONT PLAN OF CARE
[2017-01-01 21:00] VITALS: BP 102/50
--- NOTE | 2017-01-02 00:05 | NUR ---
PT IS ASLEEP WITH EVEN UNLABORED VS'S NOTED AND NO DISTRESS. HE HAS O2 AT 2 LITERS AND IS ON AN AIR BED FOR COMFORT. THE BED IS LOW, RAILS UP X'S 2 WITH THE CALL LIGHT AT HAND.
[2017-01-02 02:15] VITALS: BP 96/49
[2017-01-02 04:00] VITALS: BP 101/59
[2017-01-02 05:41] LABS: BASOPHILS 0.1 % (0.0-2.0); EOSINOPHILS 2.3 % (0-7); HEMOGLOBIN 11.4 g/dL (13.5-17.5); IMMATURE GRANULOCYTES 0.2 % (0-5); LYMPHOCYTES 23.7 % (15-50); MCH 27.2 pg (26.0-34.0); MCHC 31.7 g/dL (31.0-37.0); MCV 85.9 fL (80.0-100.0); MEAN PLATELET VOLUME 9.4 fL (7.4-10.4); MONOCYTES 5.7 % (2-11); PLATELET COUNT 297 10x3/uL (130-400); RBC 4.19 10x6/uL (4.20-6.10); RDW 16.1 % (11.5-14.5)
[2017-01-02 05:42] LABS: WBC 12.8 10x3/uL (4.8-10.8)
[2017-01-02 06:14] LABS: ALBUMIN 1.9 g/dL (3.4-5.0); ANION GAP 10.8 mmol/L (8-16); BILIRUBIN - TOTAL 0.3 mg/dL (0.2-1.3); CALCIUM 9.1 mg/dL (8.5-10.1); CARBON DIOXIDE 26.5 mmol/L (21.0-32.0); CREATININE - SERUM 1.3 mg/dL (0.6-1.3); POTASSIUM - SERUM 3.3 mmol/L (3.5-5.1); PROTEIN - SERUM 6.8 g/dL (6.4-8.2)
--- NOTE | 2017-01-02 07:15 | NUR ---
SLEEPING QUIETLY AT PRESENT RESP EVEN AND UNLABORERD DENIES ANY NEEDS HELL PROTECTORS IN PLACE PAULIE AT PRESENT.
--- NOTE | 2017-01-02 09:00 | NUR ---
CORNELL SCANNED 110CC IN BLADDER AT PRESENT.
[2017-01-02 10:36] VITALS: BP 114/57
--- NOTE | 2017-01-02 11:00 | NUR ---
QUIET IN ROOM AT PRESENT ASLEEP XOCHILT 02 CONT AT 2L N/C AT PRESENT .
--- NOTE | 2017-01-02 11:01 | NUR ---
Nutrition follow-up: Diet: mechanical soft with nectar thick liquids PO intake ~60% average of meals Labs reviewed No new wt to assess Noted order for calorie count. Will make sure diet office is aware. RDN following.
[2017-01-02 11:32] VITALS: BP 111/62
--- NOTE | 2017-01-02 13:00 | NUR ---
PT STILL VOIDED AT PRESENT.
--- NOTE | 2017-01-02 15:00 | NUR ---
REPOSITIONED FOR COMFORT AT PRESENT.
[2017-01-02 15:12] VITALS: BP 87/51
--- NOTE | 2017-01-02 16:00 | NUR ---
15FR COUDIUT CATH PLACED IN ST MANNER VIA PIPE KAPLAN 20CC OF HSO IN BULB PT STARTED VOIDING AROUND LEMON AT PRESENT.
--- NOTE | 2017-01-02 18:54 | NUR ---
STATUS REMAINS UNCHGD AT PRESENT.
[2017-01-02 20:00] VITALS: BP 121/68
[2017-01-03] VITALS: BP 127/66
[2017-01-03 04:00] VITALS: BP 124/72
--- NOTE | 2017-01-03 04:57 | NUR ---
BED BATH GIVEN TO PATIENT, STAGE 1 PRESSURE ULCER NOTED TO SCROTUM WITH LEAKAGE AROUND CATHETER. BULB WAS REPORTED TO FILLED WITH 20mL OF SALINE BY DAY SHIFT.
--- NOTE | 2017-01-03 05:24 | NUR ---
PATIENT SLEEPING IN BED, NO APPARENT DISTRESS, 2 LPM O2 VIA NC HUMIDIFIED. LEMON PLACED DURING DAY SHIFT, NOTED TO BE LEAKING. ESCHAR TO THE HEELS BILAT WITH WET TO DRY DRESSING IN PLACE AND FOAM HEEL PROTECTORS. MULTIPLE SCABS NOTED ON THE LEGS WITH NO EDEMA. STAGE 1 NOTED TO THE SCROTUM, TESTICLES ELEVATED WITH A FOLDED PILLOW CASE. TEAR NOTED TO THE SACAL AREA OF THE BACK WITH CALESPTINE CREAM ON IT. 1ST STEP OVER LAY MATRESS ON THE BED, BED IN LOWEST LOCKED POSITION, HOB ELEVATED 20 DEGREES, CALL LIGHT WITHIN REACH, BED ALARM ON.
--- NOTE | 2017-01-03 07:45 | NUR ---
SLEEPING QUIETLY AT PRESENT DENIES ANY NEEDS AT THIS TIME 02 CONT 2L N/C HEEL PROTECTOR BOOTS IN PLACE PAULIE HEEL.
[2017-01-03 09:01] VITALS: BP 150/72
--- NOTE | 2017-01-03 09:15 | NUR ---
MEDS GIVEN CITLALY WELL AT PRESENT.
--- NOTE | 2017-01-03 11:00 | NUR ---
UP IN CHAIR WITH PT CITLALY WELL AT PRESENT.
[2017-01-03 12:06] VITALS: BP 136/64
--- NOTE | 2017-01-03 12:45 | NUR ---
INCONT OF STOOL AT PRESENT CLEANED UP BATH GIVEN.
[2017-01-03 14:22] LABS: BASOPHILS 0.1 % (0.0-2.0); HEMATOCRIT 35.2 % (42.0-54.0); HEMOGLOBIN 11.1 g/dL (13.5-17.5); IMMATURE GRANULOCYTES 0.1 % (0-5); LYMPHOCYTES 13.7 % (15-50); MCH 27.1 pg (26.0-34.0); MCHC 31.5 g/dL (31.0-37.0); MCV 85.9 fL (80.0-100.0); MEAN PLATELET VOLUME 9.5 fL (7.4-10.4); MONOCYTES 6.1 % (2-11); PLATELET COUNT 286 10x3/uL (130-400); RDW 16.4 % (11.5-14.5); WBC 10.3 10x3/uL (4.8-10.8)
--- NOTE | 2017-01-03 14:45 | NUR ---
SLEEPING QUIETLY AT PRESENT DENIES ANY NEEDS AT PRESENT.
[2017-01-03 15:40] LABS: ALKALINE PHOSPHATASE 98 U/L (46-116); BILIRUBIN - TOTAL 0.33 mg/dL (0.2-1.3); CALCIUM 8.5 mg/dL (8.5-10.1); CARBON DIOXIDE 28.9 mmol/L (21.0-32.0); CHLORIDE - SERUM 104 mmol/L (98-107); POTASSIUM - SERUM 3.5 mmol/L (3.5-5.1); PROTEIN - SERUM 6.4 g/dL (6.4-8.2); SODIUM 139 mmol/L (136-145); UREA NITROGEN 17 mg/dL (7-18); eGFR NON AFRICAN AMERICAN 76 mL/min (90-120)
[2017-01-03 15:41] LABS: ALT (SGPT) 48 U/L (10-68); CALC OSMOLALITY 282 mosm/kg (275-300); GLUCOSE 144 mg/dL (74-106)
--- NOTE | 2017-01-03 16:00 | NUR ---
REPOSITIONED FOR COMFORT AT PRESENT DENIES ANY NEEDS AT PRESENT LEMON CATH LEAKIND AT INTERVALS.
[2017-01-03 16:26] VITALS: BP 117/69
--- NOTE | 2017-01-03 18:40 | NUR ---
SLEEPING QUIETLY AT PRESENT DENIES ANY NEEDS AT PRESENT TPN CONT VIA IP CONT AT PRESENT AT PRESENT.
[2017-01-03 21:00] VITALS: BP 115/66
[2017-01-04 01:00] VITALS: BP 122/68
--- NOTE | 2017-01-04 04:00 | NUR ---
PATIENT SLEEPING WITH NO DISTRESS NOTED. O2 @ 2L VIA NC. TPN INFUSING INTO LEFT PORT. WET TO DRY DRESSINGS TO BILATERL HEELS. SCD'S ON. B/A ON. CALL LIGHT WITHIN REACH.
[2017-01-04 05:00] VITALS: BP 133/65
[2017-01-04 05:35] LABS: BASOPHILS 0.1 % (0.0-2.0); EOSINOPHILS 3.3 % (0-7); HEMATOCRIT 33.3 % (42.0-54.0); HEMOGLOBIN 10.5 g/dL (13.5-17.5); IMMATURE GRANULOCYTES 0.2 % (0-5); LYMPHOCYTES 15.4 % (15-50); MCH 27.1 pg (26.0-34.0); MCHC 31.5 g/dL (31.0-37.0); MEAN PLATELET VOLUME 9.6 fL (7.4-10.4); MONOCYTES 7.2 % (2-11); NEUTROPHILS 73.8 % (40-80); PLATELET COUNT 309 10x3/uL (130-400); RBC 3.87 10x6/uL (4.20-6.10); RDW 16.4 % (11.5-14.5); WBC 9.4 10x3/uL (4.8-10.8)
[2017-01-04 06:02] LABS: ALBUMIN 1.9 g/dL (3.4-5.0); ALKALINE PHOSPHATASE 85 U/L (46-116); ALT (SGPT) 38 U/L (10-68); BILIRUBIN - TOTAL 0.26 mg/dL (0.2-1.3); CALC OSMOLALITY 282 mosm/kg (275-300); CALCIUM 8.7 mg/dL (8.5-10.1); CARBON DIOXIDE 29.1 mmol/L (21.0-32.0); CHLORIDE - SERUM 103 mmol/L (98-107); GLUCOSE 191 mg/dL (74-106); POTASSIUM - SERUM 3.4 mmol/L (3.5-5.1); PROTEIN - SERUM 6.7 g/dL (6.4-8.2); SODIUM 138 mmol/L (136-145); UREA NITROGEN 17 mg/dL (7-18); eGFR NON AFRICAN AMERICAN 76 mL/min (90-120)
--- NOTE | 2017-01-04 07:45 | NUR ---
ASSESSMENT PER FLOW SHEET.PT WITHOUT DISTRESS.DRESSING TO BILATERAL HEELS CLEAN,DRY AND INTACT.DRESSING TO BUTTOCK CLEAN,DRY AD INTACT.MONITOR FOR NEEDS
[2017-01-04 08:18] VITALS: BP 131/73
--- NOTE | 2017-01-04 08:43 | NUR ---
CALORIE COUNT 01/02/27 KCALGM PROTEIN BREAKFASTNOT RECORDED [id number]
--- NOTE | 2017-01-04 08:47 | NUR ---
CALORIE COUNT 01/03/17 KCALGM PROTEIN [id number]
--- NOTE | 2017-01-04 11:41 | NUR ---
LEFT PORT LEAKING.RE ACCESSED WITH 20G 0.75 INCH USING BLOOD BANK LABORATORY TECHNOLOGIST.IV TUBING CHANGED.
[2017-01-04 12:27] VITALS: BP 123/54
[2017-01-04 15:55] VITALS: BP 124/58
[2017-01-04 19:00] VITALS: BP 182/78
--- NOTE | 2017-01-04 20:07 | NUR ---
ASSESSMENT PER FLOWSHEET. TEMP ELEVATED TO 103.2. TYLENOL 500MG PO GIVEN FOR TEMP MEASURES. IV PATENT LEFT INFUSAPORT OF NS AT 75CC'S/HR. TPN INFUSING AT 30CC'S/HR. PT ON A FIRST STEP AIR BED SR UP X2 CALL LIGHT WITHIN REACH.HOB UP 35 DEGREES. O2 ON 2L/M PER NC. TELM. SHOWS SR WITH HR 100 AND PAC'S AND PVC'S.
--- NOTE | 2017-01-04 21:27 | NUR ---
UWBR=818. REGULAR INSULIN 12 UNITS GIVEN SUBC PER S/S.
--- NOTE | 2017-01-04 21:30 | NUR ---
MEDS GIVEN PER MAR.
--- NOTE | 2017-01-05 | NUR ---
REPOSTIONED IN BED SR UP X2. CALL LIGHT WITHIN REACH.
[2017-01-05 01:00] VITALS: BP 121/70
--- NOTE | 2017-01-05 03:14 | NUR ---
EYES CLOSED RESPIRATIONS WITH EASE AND UNLABORED.
[2017-01-05 04:00] VITALS: BP 144/79
[2017-01-05 05:41] LABS: BASOPHILS 0.2 % (0.0-2.0); EOSINOPHILS 3.7 % (0-7); HEMATOCRIT 35.2 % (42.0-54.0); HEMOGLOBIN 10.9 g/dL (13.5-17.5); IMMATURE GRANULOCYTES 0.3 % (0-5); LYMPHOCYTES 18.5 % (15-50); MCH 26.5 pg (26.0-34.0); MCV 85.6 fL (80.0-100.0); MEAN PLATELET VOLUME 9.8 fL (7.4-10.4); MONOCYTES 7.6 % (2-11); NEUTROPHILS 69.7 % (40-80); PLATELET COUNT 318 10x3/uL (130-400); RBC 4.11 10x6/uL (4.20-6.10); RDW 16.4 % (11.5-14.5); WBC 9.8 10x3/uL (4.8-10.8)
--- NOTE | 2017-01-05 06:05 | NUR ---
FSBS=49. ONE AMP DEXTROSE IVP GIVEN FOR LOW GLUCOSE PER ROZINAAL.
[2017-01-05 06:19] LABS: ALBUMIN 1.9 g/dL (3.4-5.0); ALKALINE PHOSPHATASE 99 U/L (46-116); ALT (SGPT) 36 U/L (10-68); BILIRUBIN - TOTAL 0.39 mg/dL (0.2-1.3); CALC OSMOLALITY 276 mosm/kg (275-300); CALCIUM 8.5 mg/dL (8.5-10.1); CARBON DIOXIDE 29.5 mmol/L (21.0-32.0); CHLORIDE - SERUM 103 mmol/L (98-107); CREATININE - SERUM 0.9 mg/dL (0.6-1.3); POTASSIUM - SERUM 3.2 mmol/L (3.5-5.1); PROTEIN - SERUM 6.8 g/dL (6.4-8.2); SODIUM 140 mmol/L (136-145); UREA NITROGEN 15 mg/dL (7-18); eGFR NON AFRICAN AMERICAN 85 mL/min (90-120)
[2017-01-05 06:24] LABS: GLUCOSE 52 mg/dL (74-106)
--- NOTE | 2017-01-05 07:30 | NUR ---
WALKING ROUNDS,WITHOUT DISTRESS.CALL LIGHT IN REACH.
[2017-01-05 07:59] VITALS: BP 106/71
--- NOTE | 2017-01-05 09:00 | NUR ---
ASSESSMENT PER FLOW SHEET.PT WITHOUT DISTRESS.CALL LIGHT IN REACH
--- NOTE | 2017-01-05 09:04 | NUR ---
CALORIE COUNT 01/04/17 KCALGM PROTEIN [id number] LUNCHNOT RECORDED [id number]
--- NOTE | 2017-01-05 10:15 | NUR ---
DRESSING CHANGE TO BILATERAL HEELS ORDERED.STILL BLACKED AREAS ON HEELS WITH PINK EDGES.MINIMAL DRAINAGE NOTED LIGHT CLEAR YELLOW IN COLOR.TOLERATED WELL.CALL LIGHT IN REACH
[2017-01-05 12:06] VITALS: BP 129/66
[2017-01-05 16:17] VITALS: BP 135/74
[2017-01-05 19:00] VITALS: BP 138/72
--- NOTE | 2017-01-05 20:00 | NUR ---
ASSESSMENT PER FLOWSHEET. IV PATENT LEFT INFUSAPORT OF NS AT 75CC'S/HR AND TPN AT 30CC'S/HR SITE CLEAR. LEMON TO BS DRAINAGE WITH YELLOW URINE. PT ON FIRST STEP AIR BED. DRESSING TO BOTH FEET.BPAU=242. REGULAR INSULIN 16 UNITS GIVEN TO RT ARM PER S/S.
--- NOTE | 2017-01-05 21:00 | NUR ---
MEDS GIVEN PER MAR.
--- NOTE | 2017-01-05 22:00 | NUR ---
REPOSITIONED IN BED BOX BED ALARM ON. SR UP X2 CALL LIGHT WITHIN REACH.
[2017-01-06] VITALS: BP 130/61
--- NOTE | 2017-01-06 | NUR ---
SMFE=678. REGULAR INSULIN HELD. PT VERY SENSITIVE TO INSULIN WILL CHECK GLUCOSE AT 0400.TURNED TO RT SIDE.
[2017-01-06 04:00] VITALS: BP 104/62
--- NOTE | 2017-01-06 04:45 | NUR ---
DKGZ=610 NO COVERAGE NEEDED.
[2017-01-06 05:58] LABS: BASOPHILS 0.2 % (0.0-2.0); EOSINOPHILS 0.8 % (0-7); HEMATOCRIT 33.4 % (42.0-54.0); HEMOGLOBIN 10.8 g/dL (13.5-17.5); IMMATURE GRANULOCYTES 0.4 % (0-5); MCH 27.5 pg (26.0-34.0); MCHC 32.3 g/dL (31.0-37.0); MEAN PLATELET VOLUME 9.7 fL (7.4-10.4); MONOCYTES 7.2 % (2-11); NEUTROPHILS 77.4 % (40-80); PLATELET COUNT 305 10x3/uL (130-400); RBC 3.93 10x6/uL (4.20-6.10); RDW 16.3 % (11.5-14.5)
[2017-01-06 06:12] LABS: WBC 13.5 10x3/uL (4.8-10.8)
--- NOTE | 2017-01-06 06:27 | NUR ---
REPOSITIONED IN BED BATH AND LINENS CHANGED.
[2017-01-06 06:28] LABS: ALBUMIN 1.8 g/dL (3.4-5.0); ANION GAP 10.2 mmol/L (8-16); BILIRUBIN - TOTAL 0.45 mg/dL (0.2-1.3); CALCIUM 8.9 mg/dL (8.5-10.1); CARBON DIOXIDE 29.4 mmol/L (21.0-32.0); CREATININE - SERUM 1.1 mg/dL (0.6-1.3); MAGNESIUM - SERUM 1.7 mg/dL (1.8-2.4); PHOSPHOROUS 2.9 mg/dL (2.5-4.9); POTASSIUM - SERUM 3.6 mmol/L (3.5-5.1); PROTEIN - SERUM 6.9 g/dL (6.4-8.2)
--- NOTE | 2017-01-06 07:15 | NUR ---
SLEEP AT PRESENT RESP EVEN AND UNLABORED AT PRESENT TPN AT 30CC/HR/IP AT PRESENT.
[2017-01-06 08:30] VITALS: BP 131/66
--- NOTE | 2017-01-06 09:20 | NUR ---
MEDS GIVEN CITLALY WELL N/C AT PRESENT.
--- NOTE | 2017-01-06 11:00 | NUR ---
UP IN CHAIR WITH PT CITLALY WELL AT PRESENT N/C.
--- NOTE | 2017-01-06 12:00 | NUR ---
FED BY [employer] DEVELOPER CITLALY WELL AT PRESENT DENIES ANY NEEDS,
[2017-01-06 12:18] VITALS: BP 110/57
--- NOTE | 2017-01-06 14:00 | NUR ---
SLEEPING QUIETLY RESP EVEN AND UNLABORED.
--- NOTE | 2017-01-06 16:12 | NUR ---
QUIET IN ROOM AT PRESENT DENIES ANY NEEDS AT THIS TIME LEMON CATH IN PLACE AND DRAINING YELLOW URINE.
[2017-01-06 16:43] VITALS: BP 139/76
--- NOTE | 2017-01-06 18:53 | NUR ---
FAMILY AT BEDSIDE AT PRESENT.
[2017-01-06 20:00] VITALS: BP 139/66
--- NOTE | 2017-01-06 20:00 | NUR ---
ASSESSMENT PER FLOWSHEET. PT ON FIRST STEP AIR BED SR UP X2. IV PATENT LEFT INFUSAPORT WITH TPN AT 30CC'S/HR NS AT 75CC'S/HR SITE CLEAR. [id number]. REGULAR INSULIN 16 UNITS GIVEN SUBC PER S/S. REPOSITIONED IN BED DRESSINGS TO BOTH HEELS C/D/I.
--- NOTE | 2017-01-06 20:45 | NUR ---
MEDS GIVEN PER JAN. TEMP ELEVATED TO 102.4. TYLENOL 500MG PO GIVEN FOR TEMP MEASURES.
--- NOTE | 2017-01-06 22:30 | NUR ---
EYES CLOSED RESPIRATIONS WITH EASE. O2 AT 3L/M PER NC. NO DISTRESS.
[2017-01-07] VITALS: BP 119/59
--- NOTE | 2017-01-07 00:03 | NUR ---
[id number]. REGULAR INSULIN 20 UNITS GIVEN SUBC PER S/S.
[2017-01-07 04:00] VITALS: BP 143/71
--- NOTE | 2017-01-07 04:00 | NUR ---
LAB WORK DRAWN FROM PORT AND FLUSHED WITH NS. BLOOD [id number]. NO COVERAGE NEEDED.
[2017-01-07 05:28] LABS: BASOPHILS 0.4 % (0.0-2.0); EOSINOPHILS 5.9 % (0-7); HEMATOCRIT 33.4 % (42.0-54.0); HEMOGLOBIN 10.5 g/dL (13.5-17.5); IMMATURE GRANULOCYTES 0.4 % (0-5); LYMPHOCYTES 14.7 % (15-50); MCH 27.3 pg (26.0-34.0); MCHC 31.4 g/dL (31.0-37.0); MCV 86.8 fL (80.0-100.0); MONOCYTES 6.9 % (2-11); NEUTROPHILS 71.7 % (40-80); PLATELET COUNT 309 10x3/uL (130-400); RBC 3.85 10x6/uL (4.20-6.10); RDW 16.9 % (11.5-14.5)
[2017-01-07 05:30] LABS: WBC 8.4 10x3/uL (4.8-10.8)
[2017-01-07 05:57] LABS: ALBUMIN 1.7 g/dL (3.4-5.0); ALKALINE PHOSPHATASE 101 U/L (46-116); ALT (SGPT) 29 U/L (10-68); CALC OSMOLALITY 283 mosm/kg (275-300); CALCIUM 8.5 mg/dL (8.5-10.1); CARBON DIOXIDE 31.8 mmol/L (21.0-32.0); CHLORIDE - SERUM 104 mmol/L (98-107); GLUCOSE 131 mg/dL (74-106); MAGNESIUM - SERUM 1.9 mg/dL (1.8-2.4); PHOSPHOROUS 2.8 mg/dL (2.5-4.9); POTASSIUM - SERUM 3.8 mmol/L (3.5-5.1); PROTEIN - SERUM 6.2 g/dL (6.4-8.2); SODIUM 140 mmol/L (136-145); UREA NITROGEN 21 mg/dL (7-18); eGFR NON AFRICAN AMERICAN 76 mL/min (90-120)
--- NOTE | 2017-01-07 06:20 | NUR ---
MEDS GIVEN PER JAN. COMPLETE BED BATH GIVEN BY BOTTLE WASHER MACHINE WITH LINENS CHANGED
--- NOTE | 2017-01-07 07:00 | NUR ---
REPORT RECIEVED. ASSUMED CARE. PATIENT IN BED WITH IV INTACT. NO COMPLAINTS AT THIS TIME. FAMILY AT BEDSIDE. CALL LIGHT WITHIN REACH.
[2017-01-07 08:30] VITALS: BP 128/63
--- NOTE | 2017-01-07 12:07 | NUR ---
NUTRITION MONITORING & EVAL CHART REVIEWED, PT REMAINS IN ISOLATION. MECH SOFT DIET/NECTAR LIQUIDS. RECENT CALORIE COUNTS INDICATE INADEQUATE PO INTAKE. PT ALSO RECEIVING 4.25% AA//10% DEXTROSE AT 30 CC/HR. PROVIDING 367 KCAL, [address] GM [address] DAY. RD FOLLOWING
[2017-01-07 12:28] VITALS: BP 132/66
--- NOTE | 2017-01-07 13:01 | OP ---
PATIENT NAME: JAYJAY WEI MEDICAL RECORD: [id number] :33 LOCATION:[id number] ADMISSION DATE:12/25/16 SURGEON: JEFFERSON VERNON MD DATE OF OPERATION: 01/01/2017 PREOPERATIVE DIAGNOSES: 1. Bilateral heel pressure ulcers. 2. Dementia. 3. Debility. 4. Hypertension. 5. Diabetes mellitus. 6. History of deep venous thrombosis and pulmonary embolism. 7. Lung cancer. 8. Pneumonia. POSTOPERATIVE DIAGNOSES: 1. Bilateral heel pressure ulcers. 2. Dementia. 3. Debility. 4. Hypertension. 5. Diabetes mellitus. 6. History of deep venous thrombosis and pulmonary embolism. 7. Lung cancer. 8. Pneumonia. PROCEDURE: Bilateral heel debridement. SURGEON: Jefferson Vernon MD. REPORT OF PROCEDURE: The patient's bilateral heels for sharply debrided. There was a large thick eschar on each heel with the larger one being on the left side. The eschar was encircled with sharp dissection and we continued our sharp dissection through the subcutaneous fatty tissues until we completely removed the eschar. The subcutaneous fatty tissues were not healthy appearing, but there was blood supply visible to this at distal side to perform wet-to-dry dressings on the visible fatty tissue to see if we can get any sort of growth. Clean gauze and Kerlix were placed over the wounds. COMPLICATIONS: None. CONDITION: Stable. ANESTHESIA: None. BLOOD LOSS: Minimal. Procedure done at the bedside. TRANSINT:[id number] Voice Confirmation ID: [id number] DOCUMENT ID: [id number] OPERATIVE REPORT [id number] JAYJAY WEI CHRISTIAN MD at 1301 CC: [id number] DICTATION DATE: 01/01/17 1457 AIRCRAFT LIFE SUPPORT FITTER: 01/01/17 1924 ADM IN [facility] [address] [place] [address]
[2017-01-07 16:10] VITALS: BP 106/55
--- NOTE | 2017-01-07 18:55 | NUR ---
PATIENT IN BED WITH IV AND LEMON INTACT. NO COMPLAINTS. CALL LIGHT WITHIN REACH.
[2017-01-07 20:00] VITALS: BP 142/72
[2017-01-08] VITALS: BP 131/66
[2017-01-08 04:00] VITALS: BP 131/72
[2017-01-08 05:24] LABS: BASOPHILS 0.8 % (0.0-2.0); EOSINOPHILS 5.1 % (0-7); HEMATOCRIT 32.8 % (42.0-54.0); HEMOGLOBIN 10.3 g/dL (13.5-17.5); IMMATURE GRANULOCYTES 0.4 % (0-5); LYMPHOCYTES 15.2 % (15-50); MCH 27.4 pg (26.0-34.0); MCHC 31.4 g/dL (31.0-37.0); MCV 87.2 fL (80.0-100.0); MEAN PLATELET VOLUME 9.9 fL (7.4-10.4); MONOCYTES 7.1 % (2-11); NEUTROPHILS 71.4 % (40-80); PLATELET COUNT 325 10x3/uL (130-400); RBC 3.76 10x6/uL (4.20-6.10); RDW 17.4 % (11.5-14.5); WBC 10.3 10x3/uL (4.8-10.8)
[2017-01-08 05:47] LABS: ALBUMIN 2.2 g/dL (3.4-5.0); ALKALINE PHOSPHATASE 123 U/L (46-116); ALT (SGPT) 30 U/L (10-68); BILIRUBIN - TOTAL 0.56 mg/dL (0.2-1.3); CALC OSMOLALITY 280 mosm/kg (275-300); CALCIUM 9.1 mg/dL (8.5-10.1); CARBON DIOXIDE 30.2 mmol/L (21.0-32.0); CHLORIDE - SERUM 102 mmol/L (98-107); GLUCOSE 111 mg/dL (74-106); MAGNESIUM - SERUM 1.8 mg/dL (1.8-2.4); PHOSPHOROUS 3.2 mg/dL (2.5-4.9); POTASSIUM - SERUM 3.7 mmol/L (3.5-5.1); PROTEIN - SERUM 7.1 g/dL (6.4-8.2); SODIUM 138 mmol/L (136-145); UREA NITROGEN 23 mg/dL (7-18); eGFR NON AFRICAN AMERICAN 76 mL/min (90-120)
--- NOTE | 2017-01-08 07:15 | NUR ---
AWAKE ALERT UPDRAFT TX BEING GIVEN CITLALY WELL LUNGS DIMINISHED AT PRESENT TPN AT 30CC/HR/IP AT PRESENT.
[2017-01-08 08:15] VITALS: BP 128/75
--- NOTE | 2017-01-08 08:15 | NUR ---
AWAKE ALERT QUIET IN ROOM N/C VOICED AT PRESENT DENIES ANY NEEDS AT THIS TIME.
--- NOTE | 2017-01-08 11:00 | NUR ---
UP IN CHAIR AT PRESENT CITLALY WELL N/C VOICED.
--- NOTE | 2017-01-08 12:30 | NUR ---
FED BY VAHE CITLALY WELL AT PRESENT.
[2017-01-08 12:57] VITALS: BP 124/70
--- NOTE | 2017-01-08 13:54 | NUR ---
QUIET IN ROOM AT PRESENT DENIES ANY NEEDS AT THIS TIME.EYES CLOSED AT PRESENT.
[2017-01-08 16:15] VITALS: BP 123/66
--- NOTE | 2017-01-08 16:59 | NUR ---
WTD DSG TO PAULIE HEELS AT PRESENT CITLALY WELL AT PRESENT.
[2017-01-08 19:00] VITALS: BP 134/69
--- NOTE | 2017-01-08 19:45 | NUR ---
FAMILY AT BEDSIDE, PT AAOX4. FAMILY MEMBER ASSISTING HIM TO SHAVE. DENIES ANY NEEDS AT THIS TIME. CALL LIGHT IN REACH, ASSESSMENT PER FLOWSHEET.
--- NOTE | 2017-01-09 01:37 | NUR ---
PT RESTING QUIETLY WITH EYES CLOSED, BREATHING EVEN AND UNLABORED ON 6L OXYMIZER. NO S/S OF DISTRESS NOTED, BED IN LOWEST POSITION,CALL LIGHT IN REACH, WILL CONTINUE TO MONITOR.
--- NOTE | 2017-01-09 04:01 | NUR ---
RT AT BEDSIDE FOR ABG'S AT THIS TIME. PT TOLERATING WELL. SALES DATA ANALYST TO CONTINUE CARE.
[2017-01-09 05:16] LABS: BASOPHILS 0.7 % (0.0-2.0); HEMATOCRIT 30.4 % (42.0-54.0); HEMOGLOBIN 9.4 g/dL (13.5-17.5); IMMATURE GRANULOCYTES 0.3 % (0-5); LYMPHOCYTES 14.6 % (15-50); MCH 27.2 pg (26.0-34.0); MCHC 30.9 g/dL (31.0-37.0); MCV 87.9 fL (80.0-100.0); MEAN PLATELET VOLUME 10.3 fL (7.4-10.4); NEUTROPHILS 73.4 % (40-80); PLATELET COUNT 345 10x3/uL (130-400); RBC 3.46 10x6/uL (4.20-6.10); RDW 17.3 % (11.5-14.5); WBC 9.4 10x3/uL (4.8-10.8)
[2017-01-09 05:44] LABS: ALBUMIN 1.8 g/dL (3.4-5.0); ALKALINE PHOSPHATASE 124 U/L (46-116); ALT (SGPT) 29 U/L (10-68); CALC OSMOLALITY 277 mosm/kg (275-300); CALCIUM 8.7 mg/dL (8.5-10.1); CARBON DIOXIDE 30.5 mmol/L (21.0-32.0); CHLORIDE - SERUM 101 mmol/L (98-107); GLUCOSE 105 mg/dL (74-106); POTASSIUM - SERUM 3.6 mmol/L (3.5-5.1); PROTEIN - SERUM 6.6 g/dL (6.4-8.2); SODIUM 137 mmol/L (136-145); UREA NITROGEN 23 mg/dL (7-18); eGFR NON AFRICAN AMERICAN 76 mL/min (90-120)
--- NOTE | 2017-01-09 08:05 | NUR ---
PT AOX4 ANSWERS QUESTION APPROPRIATELY. LUNG SOUNDS CLEAR. SKIN PINK WARM AND DRY ABD SOFT AND ROUNDED [id number]. LEFT SUBCLAVIAN PORT ACCESSED AND FLUSHED. PT DENIES NEEDS AT THIS TIME. BED AT LOWEST POSITON. CALL LIGHT WITHIN REACH.
[2017-01-09 08:50] VITALS: BP 119/71
[2017-01-09 12:48] VITALS: BP 144/77
--- NOTE | 2017-01-09 16:36 | NUR ---
PT. WOUND CARE ON BILATERAL FEET DONE WITHOUT DIFFICULTY AT THIS TIME. PT. TOLERATED WITHOUT COMPLAINTS AT THIS TIME
[2017-01-09 16:49] VITALS: BP 135/80
--- NOTE | 2017-01-09 20:00 | NUR ---
REC'D IN BED AWAKE AND ALERT EASIL AROUSED WHEN NAME IS CALLED. RESP EVEN AND UNLABORED WITH NO DISTRESS NOTED. 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 CHECKED ON OFTEN. C/L IN REACH AT BEDSIDE.
[2017-01-09 20:59] VITALS: BP 108/64
[2017-01-10] VITALS: BP 134/66
--- NOTE | 2017-01-10 03:20 | NUR ---
PATIENT RESTING WITH EYES CLOSED. NO VISIBLE SIGNS OF DISTRESS. BED IN LOWEST POSITION AND CALL LIGHT WITHIN REACH.
[2017-01-10 04:00] VITALS: BP 131/65
[2017-01-10 05:26] LABS: BASOPHILS 0.6 % (0.0-2.0); EOSINOPHILS 4.6 % (0-7); HEMATOCRIT 31.4 % (42.0-54.0); HEMOGLOBIN 9.7 g/dL (13.5-17.5); IMMATURE GRANULOCYTES 0.5 % (0-5); LYMPHOCYTES 13.8 % (15-50); MCH 27.1 pg (26.0-34.0); MCHC 30.9 g/dL (31.0-37.0); MCV 87.7 fL (80.0-100.0); MEAN PLATELET VOLUME 10.4 fL (7.4-10.4); MONOCYTES 6.5 % (2-11); PLATELET COUNT 371 10x3/uL (130-400); RBC 3.58 10x6/uL (4.20-6.10); RDW 17.4 % (11.5-14.5); WBC 10.8 10x3/uL (4.8-10.8)
[2017-01-10 05:52] LABS: ALBUMIN 1.9 g/dL (3.4-5.0); ALKALINE PHOSPHATASE 134 U/L (46-116); ALT (SGPT) 27 U/L (10-68); BILIRUBIN - TOTAL 0.73 mg/dL (0.2-1.3); CALC OSMOLALITY 279 mosm/kg (275-300); CALCIUM 8.7 mg/dL (8.5-10.1); CARBON DIOXIDE 32.1 mmol/L (21.0-32.0); CHLORIDE - SERUM 102 mmol/L (98-107); GLUCOSE 133 mg/dL (74-106); PHOSPHOROUS 3.1 mg/dL (2.5-4.9); POTASSIUM - SERUM 4.1 mmol/L (3.5-5.1); PROTEIN - SERUM 6.8 g/dL (6.4-8.2); SODIUM 137 mmol/L (136-145); UREA NITROGEN 23 mg/dL (7-18); eGFR NON AFRICAN AMERICAN 76 mL/min (90-120)
[2017-01-10 08:14] VITALS: BP 130/69
--- NOTE | 2017-01-10 11:35 | NUR ---
SLEEPING AT THIS TIME WITH RESPIRATIONS EVEN AND NON LABORED. OXYGEN ON 15L OXYMIZER. LEFT PORT PATENT WITH NO S/S OF INFILTRATION. LEMON PATENT AND DRAINING TO GRAVITY. FIRST STEP OVERLAY IN USE AND PT REMAINS IN DROPLET ISOLATION. CALL LIGHT IN REACH, WILL CONTINUE WITH PLAN OF CARE.
[2017-01-10 12:31] VITALS: BP 126/69
[2017-01-10 15:33] VITALS: BP 124/67
--- NOTE | 2017-01-10 20:12 | NUR ---
REC'D IN BED AWAKE AND ALERT. RESP EVEN AND UNLABORED WITH NO DISTRESS NOTED HAS OXYMIZE @ 24 L/M VIA HIGH FLOW CANNALA. NO C/O NOTED OR VOICED AT THIS TIME. 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 ASSESSMENT COMPLETED. C/L IN REACH AT BEDSIDE.
[2017-01-10 21:00] VITALS: BP 137/71
[2017-01-11 01:00] VITALS: BP 142/70
[2017-01-11 04:00] VITALS: BP 127/65
--- NOTE | 2017-01-11 04:28 | NUR ---
EYES CLOSED RESPIRATIONS WITH EASE AND UNLABORED. SR UP X2 CALL LIGHT WITHIN REACH PT ON FIRST STEP AIR BED.
[2017-01-11 05:12] LABS: BASOPHILS 0.2 % (0.0-2.0); HEMATOCRIT 30.7 % (42.0-54.0); HEMOGLOBIN 9.5 g/dL (13.5-17.5); IMMATURE GRANULOCYTES 0.4 % (0-5); LYMPHOCYTES 12.5 % (15-50); MCH 27.1 pg (26.0-34.0); MCHC 30.9 g/dL (31.0-37.0); MCV 87.5 fL (80.0-100.0); MONOCYTES 6.1 % (2-11); NEUTROPHILS 78.8 % (40-80); PLATELET COUNT 365 10x3/uL (130-400); RBC 3.51 10x6/uL (4.20-6.10); RDW 17.3 % (11.5-14.5); WBC 12.4 10x3/uL (4.8-10.8)
[2017-01-11 05:40] LABS: ALBUMIN 1.9 g/dL (3.4-5.0); ANION GAP 8.2 mmol/L (8-16); BILIRUBIN - TOTAL 0.67 mg/dL (0.2-1.3); CALCIUM 9.1 mg/dL (8.5-10.1); CARBON DIOXIDE 32.2 mmol/L (21.0-32.0); CREATININE - SERUM 1.1 mg/dL (0.6-1.3); POTASSIUM - SERUM 4.4 mmol/L (3.5-5.1); PROTEIN - SERUM 7.1 g/dL (6.4-8.2)
[2017-01-11 08:40] VITALS: BP 133/66
[2017-01-11 12:23] VITALS: BP 111/61
[2017-01-11 16:38] VITALS: BP 127/56
--- NOTE | 2017-01-11 16:39 | NUR ---
WOUND CARE REASSESSMENT: BILATERAL HEELS: UNSTAGEABLE PRESSURE INJURIES: NO CHANGE IN SIZES OF WOUNDS: RIGHT HEEL 7CM X 7CM X ESCHAR LEFT HEEL 7CM X 7CM X ESCHAR. SACRUM HAS STAGE 2 0.5CM X 0.5CM X 0.3CM COVERED WITH MEPILEX SACRAL WOUND CARE WILL CONTINUE TO MONITOR
[2017-01-11 19:00] VITALS: BP 131/66
[2017-01-12 04:00] VITALS: BP 144/79
--- NOTE | 2017-01-12 05:36 | NUR ---
PATIENT IN BED, EYES OPEN, RESTING. ATTEMPT TO REPOSITION PATIENT, BUT HE REFUSES TO MOVE TO SIDE. FOAM BOOTS ON PATIENT, I.V. INFUSING AND PATENT. BED LOW POSITION, CALL LIGHT IN REACH, BED RAILS UP X2. CONTINUE TO MONITOR
[2017-01-12 05:38] LABS: BASOPHILS 0.8 % (0.0-2.0); EOSINOPHILS 5.1 % (0-7); HEMOGLOBIN 9.9 g/dL (13.5-17.5); IMMATURE GRANULOCYTES 0.5 % (0-5); LYMPHOCYTES 12.9 % (15-50); MCHC 31.9 g/dL (31.0-37.0); MCV 87.8 fL (80.0-100.0); MEAN PLATELET VOLUME 10.2 fL (7.4-10.4); NEUTROPHILS 74.7 % (40-80); PLATELET COUNT 392 10x3/uL (130-400); RBC 3.53 10x6/uL (4.20-6.10); RDW 17.3 % (11.5-14.5); WBC 10.1 10x3/uL (4.8-10.8)
[2017-01-12 06:23] LABS: ALKALINE PHOSPHATASE 156 U/L (46-116); ALT (SGPT) 35 U/L (10-68); BILIRUBIN - TOTAL 0.61 mg/dL (0.2-1.3); CALC OSMOLALITY 279 mosm/kg (275-300); CALCIUM 9.6 mg/dL (8.5-10.1); CARBON DIOXIDE 33.2 mmol/L (21.0-32.0); CHLORIDE - SERUM 103 mmol/L (98-107); POTASSIUM - SERUM 4.3 mmol/L (3.5-5.1); PROTEIN - SERUM 7.4 g/dL (6.4-8.2); SODIUM 138 mmol/L (136-145); UREA NITROGEN 23 mg/dL (7-18); eGFR NON AFRICAN AMERICAN 76 mL/min (90-120)
[2017-01-12 06:25] LABS: GLUCOSE 99 mg/dL (74-106)
--- NOTE | 2017-01-12 07:00 | NUR ---
PATIENT RESTING QUIETLY WITH EYES CLOSED. NO SIGNS OF DISTRESS NOTED. OXYGEN VIA OXYMIZER.
[2017-01-12 08:13] VITALS: BP 129/65
--- NOTE | 2017-01-12 10:19 | NUR ---
CM REASSESSMENT NOTE: CM CALLED PATIENTS (NICK) REGARDING REQUEST FROM MARYAN (PRASHANTH) TO TALK WITH HER REGARDING PATIENTS CONDITION. PATIENTS STATED SHE COULD COME AROUND 1:30 TODAY. PRASHANTH (MARYAN) WAS NOTIFIED.
--- NOTE | 2017-01-12 11:04 | NUR ---
NUTRITION MONITORING & EVAL CHART REVIEWED. PT REMAINS IN ISOLATION. OXYGEN EQUIPMENT AIDE REPORTS POOR PO INTAKE BREAKFAST. DID DRINK 100% ENSURE. CONTINUES TO RECEIVE PPN @ 30 CC/HR. RD FOLLOWING
[2017-01-12 11:21] VITALS: BP 125/61
[2017-01-12 12:23] VITALS: BP 125/61
[2017-01-12 15:28] VITALS: BP 133/59
--- NOTE | 2017-01-12 15:31 | NUR ---
CM REASSESSMENT NOTE: HOSPICE CONSULT PUT IN [facility] NOTIFIED.
--- NOTE | 2017-01-12 18:00 | NUR ---
CHANGED DRESSINGS TO BILATERAL HEELS. APPLIED DRY DRESSINGS. PATIENT TOLERATED WELL. THE HEELS HAVE AREAS THAT ARE BLACK. THERE IS NO OPENING IN THE SKIN, AND NO DRAINAGE. LEMON CARE COMPLETED AT THIS TIME.
[2017-01-12 19:00] VITALS: BP 125/73
--- NOTE | 2017-01-12 20:00 | NUR ---
ASSESSMENT PER FLOWSHEET. IV PATENT LEFT IFP OF TPN AT 30CC'S/HR. MONITORING BLOOD SUGARS Q4H SEE JAN. PT ON FIRST STEP AIR BED. ELMON TO BEDSIDE DRAINAGE WITH YELLOW URIE NOTED. O2 ON 7.5L PER OXIMYZER. HOB UP 30 DEGREES. TELM. SHOWS SR WITH HR95. PT IN DROPLET ISOLATION.
--- NOTE | 2017-01-12 21:15 | NUR ---
MEDS GIVEN PER MAR.
--- NOTE | 2017-01-13 | NUR ---
QQVA=451. 8 UNITS REGULAR INSULIN GIVEN SUBC PER S/S
--- NOTE | 2017-01-13 02:00 | NUR ---
EYES CLOSED RESPIRATIONS WITH EASE AND UNLABORED.
[2017-01-13 04:00] VITALS: BP 133/67
--- NOTE | 2017-01-13 04:00 | NUR ---
QZAU=588. 8 UNITS REGULAR INSULIN GIVEN SUBC PER S/S.
--- NOTE | 2017-01-13 06:00 | NUR ---
REPOSITIONED IN BED SR UP X2 CALL LIGHT WITHIN REACH. NO CHANGES IN ASSESSMENT.
[2017-01-13 06:35] LABS: BASOPHILS 0.6 % (0.0-2.0); HEMATOCRIT 35.9 % (42.0-54.0); IMMATURE GRANULOCYTES 0.2 % (0-5); LYMPHOCYTES 12.6 % (15-50); MCH 27.3 pg (26.0-34.0); MCHC 30.6 g/dL (31.0-37.0); MCV 89.1 fL (80.0-100.0); MEAN PLATELET VOLUME 10.5 fL (7.4-10.4); MONOCYTES 6.9 % (2-11); NEUTROPHILS 74.7 % (40-80); PLATELET COUNT 395 10x3/uL (130-400); RBC 4.03 10x6/uL (4.20-6.10); RDW 17.1 % (11.5-14.5); WBC 8.7 10x3/uL (4.8-10.8)
[2017-01-13 07:19] LABS: ALBUMIN 1.9 g/dL (3.4-5.0); BILIRUBIN - TOTAL 0.5 mg/dL (0.2-1.3); CALCIUM 9.2 mg/dL (8.5-10.1); CARBON DIOXIDE 33.4 mmol/L (21.0-32.0); CREATININE - SERUM 1.1 mg/dL (0.6-1.3); POTASSIUM - SERUM 4.4 mmol/L (3.5-5.1); PROTEIN - SERUM 7.1 g/dL (6.4-8.2)
[2017-01-13 08:13] VITALS: BP 128/71
--- NOTE | 2017-01-13 09:55 | NUR ---
PATIENT HAD INCONTINENT BOWEL MOVEMENT. CLEANED PATIENT, CHANGED LINENS. APPLIED CALMOSEPTINE TO BUTTOCKS. APPLIED NEW MEPILEX SACRAL DRESSING. CHANGED DRESSINGS TO BILATERAL HEELS. HEELS ARE BLACK AND DRY, NOTHING OPEN. APPLIED DRY DRESSINGS TO BOTH HEELS. TURNED PATIENT TO HIS RIGHT SIDE. PATIENT DENIES FURTHER NEEDS AT THIS TIME. BED IN LOWEST POSITION, CALL LIGHT IN REACH. BED RAILS UP X'S 2.
[2017-01-13 12:10] VITALS: BP 117/59
[2017-01-13 16:36] VITALS: BP 108/61
--- NOTE | 2017-01-13 18:00 | NUR ---
LEMON CARE COMPLETED AT THIS TIME
[2017-01-13 19:00] VITALS: BP 106/64
--- NOTE | 2017-01-13 19:46 | NUR ---
REPORT GIVEN TO EUSEBIO RO. NOTIFIED HER THE PATIENT'S DRESSING ON HIS PORT WAS NOT CHANGED THIS SHIFT, AND STILL NEEDS TO BE CHANGED.
--- NOTE | 2017-01-13 20:00 | NUR ---
ASSESSMENT PER FLOWSHEET. IV PATENT LEFT IFP OF TPN INFUSING AT 30CC'S/HR SITE CLEAR. LEMON TO BS DRAINAGE. SR UP X2 CALL LIGTH WITHIN REACH PT ON FIORST STEP AIR BED.
--- NOTE | 2017-01-13 21:30 | NUR ---
MEDS GIVEN PER MAR.
--- NOTE | 2017-01-13 22:00 | NUR ---
COMPLETE BED BATH GIVEN PER ABI COTTER REPOSITIONED IN BED.
--- NOTE | 2017-01-14 | NUR ---
EYES CLOSED RESPIRATIONS WITH EASE AND UNLABORED.
--- NOTE | 2017-01-14 03:00 | NUR ---
RESTING QUIETLY RESPIRATIONS WITH EASE AND UNLABORED. O2 ON PER OXIMYZER. 7.5L
[2017-01-14 04:00] VITALS: BP 100/55
--- NOTE | 2017-01-14 06:07 | NUR ---
NO CHANGES IN ASSESSMENT LAB DRAWN FROM IFP. PBGFCAJ=[id number]. S/S NOT USED PT VERY SENSITIVE TO S/S. WILL RECHECK AFTER BREAKFAST.
[2017-01-14 06:32] LABS: BASOPHILS 0.6 % (0.0-2.0); EOSINOPHILS 4.4 % (0-7); HEMATOCRIT 33.4 % (42.0-54.0); HEMOGLOBIN 10.2 g/dL (13.5-17.5); IMMATURE GRANULOCYTES 0.4 % (0-5); LYMPHOCYTES 14.5 % (15-50); MCH 27.4 pg (26.0-34.0); MCHC 30.5 g/dL (31.0-37.0); MCV 89.8 fL (80.0-100.0); MEAN PLATELET VOLUME 10.4 fL (7.4-10.4); MONOCYTES 7.1 % (2-11); PLATELET COUNT 438 10x3/uL (130-400); RBC 3.72 10x6/uL (4.20-6.10); RDW 17.5 % (11.5-14.5); WBC 9.5 10x3/uL (4.8-10.8)
[2017-01-14 06:41] LABS: ANION GAP 4.1 mmol/L (8-16); BILIRUBIN - TOTAL 0.3 mg/dL (0.2-1.3); CALCIUM 9.5 mg/dL (8.5-10.1); CARBON DIOXIDE 35.6 mmol/L (21.0-32.0); CREATININE - SERUM 1.1 mg/dL (0.6-1.3); POTASSIUM - SERUM 4.7 mmol/L (3.5-5.1); PROTEIN - SERUM 7.6 g/dL (6.4-8.2)
--- NOTE | 2017-01-14 07:45 | NUR ---
PATIENT RESTING WITH EYES CLOSED. NO S/S OF DISTRESS NOTED. DROPLET PRECAUTIONS IN PLACE. CALL LIGHT IN PATIENT'S REACH. WILL MONITOR PATIENT.
[2017-01-14 07:52] VITALS: BP 117/65
--- NOTE | 2017-01-14 10:18 | NUR ---
SCHEDULED MORNING MEDICATIONS GIVEN TO PATIENT. PATIENT TOLERATED WELL IN APPLESAUCE. ASSESSMENT COMPLETED. SEE FLOWSHEET FOR DETAILS. LEFT INFUSAPORT PATENT WITH DRESSING C/D/I. TELEMETRY IN PLACE AND SHOWING SINUS TACHYCARDIA WITH A RATE OF 121. PATIENT IS A DNR. PATIENT IS ON A FIRST STEP OVELAY MATTRESS. TURNING EVERY [address] AT 7.5L OF OXYGEN. TPN INFUSING AT 30 ML/HR. PATIENT DENIES ANY PAIN AT PRESENT TIME. DROPLET PRECAUTIONS IN PLACE. CALL LIGHT IN PATIENT'S REACH. WILL MONITOR.
[2017-01-14 12:21] VITALS: BP 122/60
[2017-01-14 15:48] VITALS: BP 105/76
--- NOTE | 2017-01-14 17:54 | NUR ---
PATIENT TO BE TRANSFERRED TO INPATIENT [facility]. REPORT CALLED TO EUSEBIO VELA AT HOSPICE CARE.
--- NOTE | 2017-01-14 17:58 | NUR ---
CALLED AMBULANCE SERVICE TO COME PICK PATIENT UP AND TRANSFER TO INPATIENT [facility]OS[facility].
== END 2017-01-14 21:15 | disposition home health service (06) | DRG 166 ==
LOC: D.ER 14:00 → D.MS 17:57
PROVIDERS: Emergency Medicine; Family Medicine; Family Medicine Adult Medicine; Internal Medicine Pulmonary Disease; ADMIT Family Medicine
PROC: 0JBR0ZZ Excision of Left Foot Subcutaneous Tissue and Fascia, Open Approach (ICD-10-PCS; principal; 2017-01-01)
PROC: 0JBQ0ZZ Excision of Right Foot Subcutaneous Tissue and Fascia, Open Approach (ICD-10-PCS; 2017-01-01)
PROC: 0T9B70Z Drainage of Bladder with Drainage Device, Via Natural or Artificial Opening (ICD-10-PCS; 2017-01-01)
DX: J44.0 Chronic obstructive pulmonary disease with (acute) lower respiratory infection (principal); J15.212 Pneumonia due to Methicillin resistant Staphylococcus aureus; R53.2 Functional quadriplegia; I50.21 Acute systolic (congestive) heart failure; C34.90 Malignant neoplasm of unspecified part of unspecified bronchus or lung; J98.11 Atelectasis; I13.0 Hypertensive heart and chronic kidney disease with heart failure and stage 1 through stage 4 chronic kidney disease, or unspecified chronic kidney disease; J44.1 Chronic obstructive pulmonary disease with (acute) exacerbation; E11.22 Type 2 diabetes mellitus with diabetic chronic kidney disease; F03.90 Unspecified dementia, unspecified severity, without behavioral disturbance, psychotic disturbance, mood disturbance, and anxiety; R53.81 Other malaise; Z86.711 Personal history of pulmonary embolism; Z86.718 Personal history of other venous thrombosis and embolism; N18.9 Chronic kidney disease, unspecified; D64.9 Anemia, unspecified; Z87.891 Personal history of nicotine dependence; R13.12 Dysphagia, oropharyngeal phase; L89.150 Pressure ulcer of sacral region, unstageable; L89.620 Pressure ulcer of left heel, unstageable; L89.610 Pressure ulcer of right heel, unstageable; E87.6 Hypokalemia; E83.42 Hypomagnesemia; Z66 Do not resuscitate